=== PATIENT | female | born 1975 | race Caucasian/White ===

== ENCOUNTER 2019-12-31 12:08 | Inpatient (IN) | payer OTHER ==
[~2019-12-31] VITALS: Ht 144.8 cm; Wt 45.4 kg
--- NOTE | ~2019-12-31 | HC ---
[facility] [place] [address] CONSULTATION Name: FIONA GONZALES Room #: 456-P [facility] IN M.R.#: [id number] Admission: 12/31/19 Attend Phys: Mick Macdonald Discharge: 01/01/20 Date of : 71 Report #: [id number] THIS REPORT FOR: cc: CHULA - Samira family physician/PCP CHULA - Samira family physician/PCP Rafael Noriega MD ~ CC: CHULA physician/PCP Mick Macdonald DATE OF SERVICE: 01/01/2020 CHIEF COMPLAINT: Bilateral below-knee amputations. HISTORY OF PRESENT ILLNESS: This is a 44-year-old female patient who had a prolonged hospitalization at another facility. She presented originally with septic shock and polysubstance abuse and encephalopathy, developed multiorgan failure, lower extremity ischemia and ended up undergoing bilateral below-knee amputations. She left against medical advice and then presented here and has been readmitted for further evaluation and treatment. She is noted to have some ulceration and separation of the incision line on her right BKA and I am asked to see her with regard to wound care. PAST MEDICAL HISTORY: Once again is positive for previous cholecystectomy, tubal ligation, history of hepatitis C, previous partial hysterectomy, previous pneumonia. She has end-stage renal disease, requiring dialysis, bilateral below-knee amputations, multiorgan failure following severe sepsis. SOCIAL HISTORY: Negative for alcohol use. She currently smokes and is positive for recreational drug use per her history. MEDICATIONS: Include hydrocodone. ALLERGIES: No known drug allergies. FAMILY HISTORY: Noncontributory. REVIEW OF SYSTEMS: CONSTITUTIONAL: The patient denies fever, chills or weight loss. NEUROLOGICAL: The patient denies focal weakness. EYES: The patient denies any visual changes, redness, or drainage. ENT: The patient denies earache, nasal drainage or sore throat. CARDIOVASCULAR: The patient denies chest pain, palpitations or diaphoresis. PULMONARY: The patient denies cough or shortness of breath. GASTROINTESTINAL: The patient denies nausea, pain or abdominal pain. ORTHOPEDIC: The patient has bilateral below-knee amputations. Other systems in a 14-point review of systems are negative. [address] [address] CONSULTATION Name: FIONA GONZALES Room #: 456-P [facility] IN [facility].#: [id number] Admission: 12/31/19 Attend Phys: Mick Macdonald Discharge: 01/01/20 Date of : 71 Report #: [id number] PHYSICAL EXAMINATION: VITAL SIGNS: At this time include temperature 36.6, pulse 109, respiratory rate 18, blood pressure 152/97. GENERAL: This is a chronically ill-appearing female patient who appears to be in no distress. HEENT: Head normocephalic. Nose and throat clear NECK: Supple. LUNGS: Clear. ABDOMEN: Soft. Bowel sounds present. EXTREMITIES: Lower extremities demonstrate the incision line is intact bilaterally. There is ulceration, a little separation of the mid portion of the incision line, right below-knee amputation. It is not overtly infected. A little bit of crusting is noted. NEUROLOGIC: The patient is alert, does move all 4 extremities. LABORATORY STUDIES: Sodium 137, potassium 3.5, chloride 101, CO2 of 28, BUN 36, creatinine 3.8, glucose of 94, total bilirubin 0.8, alkaline phosphatase 503. Albumin 1.9. White blood cell count 8.9. CLINICAL IMPRESSION: 1. Surgical incisions, bilateral below-knee amputations. 2. Ulceration and small separation of the right below-knee amputation incision line. 3. End-stage renal disease, requiring dialysis. 4. Severe protein-calorie malnutrition. 5. History of polysubstance abuse and recent hospitalization with septic shock and multiorgan failure. 6. Type 2 diabetes mellitus. RECOMMENDATIONS: At this point in time, we will recommend Xeroform gauze to the incision lines and a small amount of gentamicin to the right incision separation area. We recommend continuation of the immobilizers, although she may do better with an AmpuShield bilaterally. She will need to go to rehab to build strength and mobility. Eventually, once the below-knee amputation sites are healed, she will need training for prostheses, continuation of current medications. She will need aggressive nutritional support to maximize her wound healing. I appreciate being asked to see her in consultation. By: [id number] Rafael Noriega MD /nt
--- NOTE | ~2019-12-31 | HC ---
[facility] [place] [address] CONSULTATION Name: FIONA GONZALES Room #: 456-P ADM IN M.R.#: [id number] Admission: 12/31/19 Attend Phys: Mick Macdonald Discharge: Date of : 71 Report #: [id number] THIS REPORT FOR: cc: FAM - No family physician/PCP CHULA - No family physician/PCP Demar Evans MD ~ CC: Larry GARRETT [facility] physician/PCP Mick Ferraro MD DATE OF SERVICE: 01/01/2020 REASON FOR CONSULTATION: Anemia. HISTORY OF PRESENT ILLNESS: The patient is a 44-year-old female who had recently been at [facility] for an extended time period with renal failure, sepsis, fungemia, who left against medical advice. Here, she was admitted for further evaluation. Her hemoglobin was 7 on admission. She has now been transfused up to 10. Her platelets are stable. Her white count is appropriate. At the other hospital, she had appropriate iron studies. She also was begun on erythropoietin by renal over there. At the other hospital, she had bilateral mkotq-qgo-jaou amputations due to ischemia and necrosis and dry gangrene. She also has septic shock and multiorgan dysfunction. She had aspiration pneumonia cavitary, MRSA positive, Legionella positive. Also, I believe there is candidemia and bacteremia, also protein-calorie malnutrition, also left AMA. Our group had signed off over there. At this time, the patient denies fevers, chills, nausea, vomiting, skin rash or bleeding. CURRENT MEDICATIONS: At this time in the hospital include calcium carbonate 1 gram daily, mirtazapine 7.5 at bedtime, gabapentin 400 at bedtime, famotidine 10 b.i.d., sliding scale insulin, hydrocodone p.r.n., Ambien p.r.n., MiraLax p.r.n., nitroglycerin p.r.n., Zofran p.r.n., micafungin 100 mg daily IV. PAST MEDICAL HISTORY: As above with the anemia, most likely of chronic kidney disease, resolving sepsis, but recent candidemia, antibiotics per others, also renal failure with dialysis, also history of hepatitis C. SOCIAL HISTORY: Not currently working. She had been working prior to this. FAMILY HISTORY: She says there is no one else in the family has significant blood or cancer difficulties. [address] [address] CONSULTATION Name: FIONA GONZALES Room #: 456-P [facility] IN [facility]#: [id number] Admission: 12/31/19 Attend Phys: Mick Macdonald Discharge: Date of : 71 Report #: [id number] PHYSICAL EXAMINATION: GENERAL: The patient appears her stated age. VITAL SIGNS: Height is 4 feet 9 inches, 144.8 cm, that is when standing when she had leg so to speak not to be clinically incorrect. Weight is 100 pounds or 45.36 kilograms. Blood pressure is 152/97, respirations 18, pulse 109, temperature 97.8. MOOD: The patient is alert and pleasant. LUNGS: Clear anteriorly. HEART: Regular rate. ABDOMEN: Without masses, no organomegaly. EXTREMITIES: Has vdtmu-qmm-bzqk amputations. ASSESSMENT AND PLAN: 1. Anemia, most likely related to resolving from sepsis, but also chronic kidney disease. Defer erythropoietin to her kidney doctors, will likely be considering dialysis, will be available if questions arise. 2. Chronic kidney disease/failure. Defer to others. 3. Fungemia history. Defer to Infectious Disease. 4. Hepatitis C. Defer management to others. 5. Bilateral nxlwx-ouc-skqz amputation, defer rehabilitation efforts to others. 6. History of polysubstance abuse, encourage avoidance of danger substances. By: [id number] Demar Evans MD /nt
[~2019-12-31 12:08] MED LIST: LORCET 5-325 M1 EACH PO; NOHOMEMEDICATIONS; NORCO 5-325 TA1 EACH PO
[2019-12-31 12:18] VITALS: BP 147/78
[2019-12-31 13:49] LABS: HEMATOCRIT 20.6 % (37.0-47.0); MCH 30.8 pg (26.0-34.0); MCHC 33.8 g/dL (28.0-37.0); MCV 91.3 fL (80.0-100.0); PLATELET COUNT 157 thou/uL (150-400); RBC 2.26 mil/uL (4.20-5.00); RDW 19.7 % (10.5-14.5); WBC 8.9 thou/uL (4.0-11.0)
[2019-12-31 14:03] LABS: CALCIUM 7.5 mg/dL (8.5-10.1); CREATININE 3.8 mg/dL (0.6-1.0); POTASSIUM 3.5 mmol/L (3.5-5.1)
[2019-12-31 14:10] LABS: ALBUMIN 1.9 g/dL (3.4-5.0); TOTAL BILIRUBIN 0.8 mg/dL (0.2-1.0); TOTAL PROTEIN 5.1 g/dL (6.4-8.2)
[2019-12-31 14:41] LABS: ABSOLUTE NEUTROPHILS 6.7 thou/uL (1.4-8.2); ANISOCYTOSIS 1+; NUCLEATED RBCS 1 /100WBC; POLYCHROMASIA SLIGHT
[2019-12-31 16:09] LABS: % SATURATION 38 % (20-39); IRON 35 ug/dL (50-170); TIBC 92 ug/dL (250-450)
[2019-12-31 16:55] VITALS: BP 156/67
--- NOTE | 2019-12-31 17:01 | NUR ---
VERBAL CONSENT FROM PT TO GIVE NIECE, AUTUMN, INFORMATION
[2019-12-31 20:30] VITALS: BP 178/93
--- NOTE | 2019-12-31 20:56 | NUR ---
PATIENT ADMITTED FROM ER, WITH ANEMIA, CHRONIC RENAL FAILURE REQUIRING DIALYSIS. PATIENT ALERT AND ORIENTED X 4 WITH SOME COGNITIVE DELAY. PATIENT DENIES PAIN DURING ADMISSION. PATIENT GIVEN FOOD AND WATER. RENAL DIET. PATIENT HAS RIGHT UPPER ARM IV AND LEFT CHEST DIALYSIS CATHETER IN PLACE. PATIENT HAS ORAL AMPUTATIONS, RIGHT SIDE 21 LING, WITH SWELLING AND REDNESS, AND LEFT SIDE HAS [address], REWAPPED BOTH LEGS. DR GARRETT CAME TO SEE THE PATIENT, PICTURES TAKEN. ADMISSION DONE WILL REPORT TO EILEEN/RN.
[2020-01-01 00:39] VITALS: BP 152/90; BP 157/83; BP 157/87; BP 158/91; BP 159/84
[2020-01-01 05:30] VITALS: BP 159/84
--- NOTE | 2020-01-01 06:45 | NUR ---
Assumed pt care at 1900. A/OX4, VSS. C/o pain to BKA, medicated per EMAR with relief reported. VSS. 1 Unit of PRBC administered w/o problems. Dialysis cath in place on LIJ with fresh drainage on dsg. Changed w/o problems. Dsgs to Left knee replaced,wyatt intact. Fall precauitions in place.
[2020-01-01 07:16] VITALS: BP 152/97
--- NOTE | 2020-01-01 07:32 | EKG ---
[facility] [place] [address] ELECTROCARDIOGRAM REPORT Name: FIONA GONZALES Room #: 456-P ADM IN M.R.#: [id number] Admission: 12/31/19 Attend Phys: Mick Macdonald Discharge: Date of : 71 Report #: [id number] THIS REPORT FOR: cc: CHULA - No family physician/PCP CHULA - No family physician/PCP Jad Smith MD [facility] THIS REPORT FOR: //name// [facility] ED Test Date: 2019-12-31 Test Time: 14:25:43 Pat Name: FIONA GONZALES Department: Room: 456 Gender: F General Expeditor: tasha : 1975 Requested By: Monet Guzman Order Number: [id number] MD: Jad Smith Measurements Intervals Grant Rate: 75 P: 57 [place]: 139 QRS: 7 QRSD: 80 T: 57 QT: 387 QTc: 433 Interpretive Statements Sinus rhythm Normal tracing No previous ECG available for comparison Electronically Signed On 01-01-2020 7:32:18 CDT by Jad Smith [email or web address] <ELECTRONICALLY SIGNED> By: Jad Smith MD, FAC 01/01/20 0732 [id number] 142 Jad Smith MD, [facility] /EPI
[2020-01-01 08:08] LABS: HEMATOCRIT 30.6 % (37.0-47.0)
[2020-01-01 08:17] LABS: HEMOGLOBIN 10.2 gm/dL (12.0-15.0)
--- NOTE | 2020-01-01 11:52 | NUR ---
PT ADMITTED RELATED TO ESRD ON HD; ANEMIA; ORAL BKA 11/2019. CM REVIEWED CHART AND SPOKE WITH CARE TEAM. CM CALLED AND SPOKE WITH PT THIS MORNING. SHE INDICATED SHE HAD BEEN AT [facility] [employer] WHERE SHE HAD A BL BKA. CHART INDICATES PT LEFT AMA 12/30/19 THAT HER SISTER PICKED HER UP AND THEN BROGUGHT HER HERE SHE NEEDED DIALYSIS. PT DIDN'T CONFIRM OR DENY THIS. SHE INDICATED THAT PRIOR TO ADMISSION TO [facility] SHE HAD BEEN LIVING IN A HOUSE ALONE WITH A COUPLE STEPS TO ENTER AND NONE SHE NEEDS TO USE INSIDE. PT INDICATED NO DME, HH HX, OR DME [employer]. PT INDICATED SHE WOULD NEED A WC UPON DC. PT INDICATED SHE IS INTERESTED IN POST ACUTE CARE STAY. PT AND OT ORDERED. [facility] TO ASSESS. CM TO FOLLOW INDICATED WITH DC PLANNING.
[2020-01-01 15:16] VITALS: BP 175/90
--- NOTE | 2020-01-01 16:26 | NUR ---
[facility] ASSESSED PT THIS DAY AND DETERMINED THAT THEY ARE ABLE TO ACCEPT PT FOR ACUTE REAHB SERVICES. MEDICAID AUTH WAS OBTAINED. THEY ARE ABLE TO BRING PT UP TO [facility] THIS EVENING AFTER 1900. PT IS AWARE AND AGREEABLE. REPORT TO BE CALLED TO . NO OTHER CM INTERVENTION INDICATED. CASE CLOSED.
--- NOTE | 2020-01-01 19:26 | NUR ---
Assumed pt care at 7am.Pt in bed resting. Assessment completed.vss.Pt was tearful and emotionally labile.She reported to this rn that her legs were amputated at [facility] without her consent and that she woke up noted that her legs were gone and that [facility]'s [facility].Emotional support given.Dr Macdonald and Nephrology here.order noted.Pt will be transfer to rehab at shift change today.Fall bundle in place.Report off to noc rn.
[2020-01-01] MEDS ORDERED: TOPROL XL25 MG PO (23:06)
[2020-01-01] MEDS ORDERED: ELIQUIS5 MG PO (23:07)
[2020-01-01] MEDS ORDERED: AMITIZA 24 MCG24 MC1 PO (23:09)
[2020-01-01] MEDS ORDERED: LIDODERM1 EACH (23:11)
[2020-01-01] MEDS ORDERED: FLEXERIL PO (23:12)
[2020-01-01] MEDS ORDERED: PROTONIX40 M2 PO (23:14)
[2020-01-01] MEDS ORDERED: COLACE100 MG PO (23:16)
== END 2020-01-01 19:30 | DRG 682 ==
LOC: ER 12:08 → EROBS 15:59 → 4W 18:32
PROVIDERS: Nurse Practitioner Family; Physician Assistant; ADMIT Hospitalist; ATTEND Hospitalist
PROC: 30233N1 Transfusion of Nonautologous Red Blood Cells into Peripheral Vein, Percutaneous Approach (ICD-10-PCS; principal; 2020-01-01)
DX: N17.9 Acute kidney failure, unspecified (principal); E43 Unspecified severe protein-calorie malnutrition; G93.41 Metabolic encephalopathy; B37.41 Candidal cystitis and urethritis; I96 Gangrene, not elsewhere classified; E11.52 Type 2 diabetes mellitus with diabetic peripheral angiopathy with gangrene; N18.6 End stage renal disease; D64.9 Anemia, unspecified; F17.210 Nicotine dependence, cigarettes, uncomplicated; E11.22 Type 2 diabetes mellitus with diabetic chronic kidney disease; B19.20 Unspecified viral hepatitis C without hepatic coma; Z90.49 Acquired absence of other specified parts of digestive tract; Z90.711 Acquired absence of uterus with remaining cervical stump; Z89.512 Acquired absence of left leg below knee; Z89.511 Acquired absence of right leg below knee; Z91.19 Patient's noncompliance with other medical treatment and regimen; Z59.0 Homelessness
CPT/HCPCS: 10040

== ENCOUNTER 2020-01-01 16:50 | Inpatient (IN) | payer OTHER ==
[~2020-01-01] VITALS: Ht 121.9 cm; Wt 39.0 kg
--- NOTE | 2020-01-01 20:00 | NUR ---
Pt. arrived to the unit from . She is alert and oriented and offers no complaints.
[2020-01-01] MEDS ORDERED: TOPROL XL25 MG PO (23:06)
[2020-01-01] MEDS ORDERED: ELIQUIS5 MG PO (23:07)
[2020-01-01] MEDS ORDERED: AMITIZA 24 MCG24 MC1 PO (23:09)
[2020-01-01] MEDS ORDERED: LIDODERM1 EACH (23:11)
[2020-01-01] MEDS ORDERED: FLEXERIL PO (23:12)
[2020-01-01] MEDS ORDERED: PROTONIX40 M2 PO (23:14)
[2020-01-01] MEDS ORDERED: COLACE100 MG PO (23:16)
[2020-01-02 01:09] VITALS: BP 143/95
[2020-01-02 05:27] LABS: HEMATOCRIT 30.6 % (37.0-47.0); HEMOGLOBIN 10.1 gm/dL (12.0-15.0); MCV 90.9 fL (80.0-100.0); RBC 3.36 mil/uL (4.20-5.00); RDW 18.5 % (10.5-14.5); WBC 9.5 thou/uL (4.0-11.0)
[2020-01-02 05:36] LABS: CALCIUM 7.9 mg/dL (8.5-10.1)
[2020-01-02 06:26] LABS: CREATININE 4.8 mg/dL (0.6-1.0)
--- NOTE | 2020-01-02 07:51 | NUR ---
Pt. rested quietly at intervals during the night when checked on during frequent rounds. She did c/o some lower leg phantom pain and Annabella LOCKETT called and new orders for po pain pill (see cpoe). Pain pill given (see emar) with some relief noted. Bed alarm is on.
[2020-01-02 08:00] VITALS: BP 154/97
--- NOTE | 2020-01-02 09:50 | NUR ---
chart review. cm up on unite with own face mask and face shield, pt call light on, cm answer it and request to get off the drop arm bsc. offered to come back later and pt was ok with visiting now. pt able to make her needs know, preferrs going by lyn. cm intro to dcp, weekly meeting and transition of care. " prior to [facility], independent, live alone in house. few step to enter and no stair inside. cooking. drive vehicle. manage own medication. no medical equip. might have broken wheel chair. no dialysis before now. no primary dr. might stay with my sister or my son is support too. my sister might stay at my place. we are still working on option. sister does work and son as well. gun stocker came to assist, pt sister dayana ferrer at bedside. pt reported she already cleaned up and just needing back into bed. pt did not want to use transfer board, lyn slid and hoped onto the bed, hitting the transfer board on to end of bed, pt sister said lyn hit back of head on transfer board. cm looked at head and pt verbal denied hitting head or any discomfort. cm passed on to bedside nurse.
[2020-01-02 11:45] LABS: FOLIC ACID 16.7 ng/mL (8.6-58.9)
--- NOTE | 2020-01-02 13:10 | NUR ---
Nutrition: pt admitted to rehab unit unit S/P bilateral BKA 2 weeks ago due to bilateral foot ischemia and necrosis leading to dry gangrene. Saw due to dx. PMH includes DM, ESRD on hemodialysis. Noted hx noncompliance. Pt had been at [facility]. Has had good appetite, eating 100% of meals and likes nepro. Will re-order once daily as was getting previously. Nutrient needs reviewed. Pt denies further education. Current weight 100# down ~20# from prior BKA weights. Estimated loss due to BKAs. Use 100# as new baseline weight. BG controlled. No need for carb controlled diet at present. Followup weekly with interventions in place.
--- NOTE | 2020-01-02 20:57 | NUR ---
ASSUMED CARE OF PT AT 0700. PT IS A&OX3, VITAL SIGNS ARE STABLE. PT IS IMPULSIVE AT TIMES AND HAS POOR INSIGHT. PT REMOVED WRAPS FROM BILATERAL BKA SITES THIS MORNING, REPLACED THIS EVENING. PT MAKING FREQUENT ATTEMPTS TO SELF TRANSFER. ACCU CHECKS ACHS. PT REPORTS SOME PAIN TO BILATERAL BKA SITES, MANAGED WTIH PO MEDICAITONS, PT PARTICIPATED IN SCHEDULED THERAPIES. IV TO RIGHT UPPER ARM INFILTRATED THIS AM AND WAS REMOVED AND NEW IV STARTED TO RIGHT AC. FALL PRECAUTIONS IN PLACE AND NURSING WILL CONTINUE TO MONITOR.
[2020-01-02 21:59] VITALS: BP 154/113
--- NOTE | 2020-01-03 02:54 | NUR ---
Assumed care on 01/02/20 @ 19:15, in bed A&Ox3. Poor insight into medical needs and reason for hospitalization. Pleasant affect noted. Reports phantom pain and requested [place] 5/325 for 6/10 pain. Provided @ 21:34 and follow up assessment noted to be sleeping in bed with eyes closed, respirations even and unlabored. Cooperated with assessment, HRRR, Lungs moving air with fine rattles noted on expiration. Acucheck noted at 112, with no S/S coverage required at that level. Will continue to monitor as protocol for patient safety and comfort.
[2020-01-03 07:08] LABS: GLYCOHEMOGLOBIN (HGB A1C) 5.2 % (4.8-5.6)
[2020-01-03 07:43] VITALS: BP 171/92
--- NOTE | 2020-01-03 12:45 | NUR ---
ASSUMED CARE AROUND 0830. PT IS ALERT AND ORIENTED. FORGETFUL, WITH SLIGHT COGNITIVE DELAYS. C/O PAIN IN HER LEGS. DESSINGS C/D/I. HANGAR TO FIT AMPUSHIELDS TODAY. PT USING SLIDE BOARD FOR TRANSFER, DOES WELL. TOLERATING PO. GI/ WNL. NEED TO GET 24 HR URINE. PIV IN RFA INFILTRATED. IV TEAM REPLACED. PT COULD BENEFIT FROM A TICC (PER IV TEAM) WILL MENTION TO DR. BERMUDEZ CATH NOTED TO LEFT NECK. WILL REDRESS WOUNDS LATER. PRN PAIN MEDS GIVEN ORDERED. FALL PRECAUTIONS IN PLACE. EDUCATED PT TO CALL IF NEEDS ARISE. CALL LIGHT IN REACH. WILL CONTINUE TO MONITOR
[2020-01-03 19:28] VITALS: BP 149/99
--- NOTE | 2020-01-04 04:15 | NUR ---
ASSUMED CARE FROMDAY SHIFT AWAKE ALERT AND ORIENTED TO TIME PLACE AND SITUATION, NO CONCERNS VOICED APPEARS CHEERFUL. PT EATING FOOD THAT WAS BROUGHT INFROM HOME. PO MEDICATION , PT ASISSTED TO BSC VOIDED, NEXT URINE WILL START 24 HOUR URINE COLLECTION. PT RESTED WELL THROUHGOUT HOURLY ROUNDS. WILL CONINTUE WITH CURRENT PLAN OF CARE.
[2020-01-04 10:05] VITALS: BP 149/101
--- NOTE | 2020-01-04 16:30 | NUR ---
PATIENT ALERT AND ORIENTED X 4 - SUFFERS FROM PHANTOM PAIN AND ADMITS TO IT. GIVEN NORCO TO AID WITH DISCOMFORT. HAS ANTIBIOTIC RUNNING AND IV INFILTRATED. IN RIGHT FOREARM. CALLED IV TEAM AND NEW IV PLACED IN LEFT FOREARM. PATIENT STATES STILL HURTS. PATIENT ABLE TO TRANSFER INDEPENDENTLY WITH BOARD. NEED MONITORING WHEN MANUVERING. LIKES TO HANDLE OWN ADL'S. SUGGESTED TICK LINE PLACEMENT IF CONTINUED ANTIBIOTIC IV REGIME. PATIENT HAD 200 CC OUTPUT SO FAR TODAY. FIRST SPECIMEN CONTAMINATED WITH FECES THIS MORNING. 24 HOUR CREATINE LAB FOLLOWUP NEEDED.
[2020-01-04 21:31] VITALS: BP 164/98
[2020-01-04 21:46] VITALS: BP 168/114
[2020-01-05] VITALS: BP 164/88
--- NOTE | 2020-01-05 03:50 | NUR ---
PT ASSESSMENT COMPLETED. FALL PRECAUTIONS IN PLACE. ORAL LOWER EXT DRESSINGS DRY AND INTACT. PRN PAIN MEDICATION HELPFUL. DIALYSIS ACCESS AND DRESSING INTACT AND WNL. ASST WITH REPOSITION. RESTARTED 24 HOUR URINE. PT HAS NOT VOIDED SO FAR DURING SHIFT. ASST WITH FREQUENT REPOSITION. WILL CONTINUE TO MONITOR FREQUENTLY.
[2020-01-05 06:24] LABS: CREATININE 3.5 mg/dL (0.6-1.0); PHOSPHORUS 3.2 mg/dL (2.5-4.9); POTASSIUM 3.9 mmol/L (3.5-5.1)
[2020-01-05 13:32] VITALS: BP 157/92
--- NOTE | 2020-01-05 19:47 | NUR ---
ASSUMED CARE OF PT AT 0715. PT IS A&OX3. IS ON ROOM AIR. IS STABLE. REPORTS PAIN IN BILAT BKAS THAT IS BEING MANAGED WITH PAIN MEDS & OTHER THERAPUETIC TECHNIQUES. DRSG CHANGED ORDERED. LABS & VITALS REVIEWED. PT TRANSFERS WITH ASSIST X1, GB, & SLIDE BOARD. FALL PRECAUTIONS & HOURLY ROUNDING CONTINUED THIS SHIFT. PT TO HAVE TIC PLACED BY IV TEAM. NOC NURSE AWARE. LABS & VITALS REVIEWED. PT IS CURRENTLY IN ROOM, IN BED, RESTING COMFORTABLY. CALL LIGHT WITHIN REACH. WILL CONTINUE TO MONITOR.
[2020-01-05 20:05] VITALS: BP 147/100
[2020-01-05 23:30] VITALS: BP 145/92
--- NOTE | 2020-01-06 02:21 | NUR ---
PT ASSESSMENT COMPLETED AND VSS. MEDS GIVEN ORDERED AND WELL TOLERATED. FALL PRECAUTIONS IN PLACE. UP TO THE BSC USING SLIDE BOARD AND GB/ASST. 24 HOUR URINE COMPLETED AND SENT TO THE LAB ON ICE - PENDING. PRN PAIN MEDICATION WORKING WELL. BG WNL. SLEEPING WELL AT THIS TIME. WILL CONTINUE TO MONITOR FREQUENTLY. DIALYSIS ACCESS WNL.
[2020-01-06 06:00] LABS: ALBUMIN 2.1 g/dL (3.4-5.0); CALCIUM 8.4 mg/dL (8.5-10.1); CREATININE 3.9 mg/dL (0.6-1.0); PHOSPHORUS 4.4 mg/dL (2.5-4.9); POTASSIUM 4.2 mmol/L (3.5-5.1)
[2020-01-06 10:58] LABS: PROTIME 10.2 Seconds (9.3-11.4)
[2020-01-06 11:49] VITALS: BP 155/80
--- NOTE | 2020-01-06 12:41 | NUR ---
team meeting, recommendation; dc , will need to set up new dialysis. hh nurse only. will need wheel chair, transfer board. she non-compliant with thicken liquids.
[2020-01-06 17:44] LABS: HEMATOCRIT 31.2 % (37.0-47.0); HEMOGLOBIN 9.9 gm/dL (12.0-15.0)
--- NOTE | 2020-01-06 21:20 | NUR ---
THIS DIALYSIS PATIENT ATTEMPTED TO ACCESS HEMODIALYSIS CATH AT 1830. AT THIS TIME CATH WOULD NOT ASPIRATE FROM EITHER LUMEN BUT DID ALLOW FLUSHING IN BOTH ARTERIAL AND VENOUS LUMENT. DR. WALDROP ORDERED CATHFLO/ACTIVASE INSTILL INTO BOTH LUMENS TO DWELL FOR 30MIN AND ATTEMPT ACCESS AGAIN. CATHFLO INSTILLED AT 1915 WITH ATTEMPTED ASPIRATION OF CATHFLO AT 1945. VENOUS LUMEN ASPIRATED VERY SLOW RATE AND REQUIRED GREAT AMOUNT OF PRULL OF PLUNGER TO ASPIRATE WHAT LITTLE POSSIBLE. ARTERIAL LUMEN WOULD NOT ASPIRATE AT ALL. IT WAS DECIDED BY DR. WALDROP TO INSTILL MORE CATHFLO INTO ACCESS TO DWELL OVERNIGHT AND A DATA RECOVERY PLANNER WILL ATTEMP THE ACCESS AGAIN FIRST THING IN THE AM. VERY IMPORTANT TO NOTE: WHEN THIS DATA RECOVERY PLANNER ACCESSED THE CATH THERE WERE TWO DIFFERENT CAPS ON THE ACCESS. THE ARTERIAL LUMEN HAD THE Q-CAPS SUPPLIED BY DIALYSIS AND THE VENOUS LUMEN HAD A VERY DIFFERENT CAP ON THE END. THE PATIENT STATED THE FLOLLWING AFTER THE 2ND ATTEMPT/POST MEDICATION TO ACCESS THE CATH: " THE KNEW IT WAS NOT WORKING". THIS DATA RECOVERY PLANNER ASKED THE PATIENT WHO KNEW AND SHE SAID "THE MAN WHO TRIED TO GET TO BLOOD TUBES FILLED FROM IT. HE KNEW IT WAS NOT WORKING." QUESTION - IS SOMEONE ACCESSING THIS HEMODIALYSIS CATHETER AND CAUSING ITS FAILURE?
--- NOTE | 2020-01-06 23:56 | NUR ---
PT ASSESSMENT COMPLETED AND VSS. MEDS GIVEN ORDERED AND WELL TOLERATED. FALL PRECAUTIONS IN PLACE. UP TO THE BSC USING SLIDE BOARD WITH ONE ASST/GAIT. PT DID VERY WELL WITH ASSISTANCE. EMERGENCY PLANNING AND RESPONSE MANAGER UNABLE TO DO DIALYSIS THIS EVENING BECAUSE ACCESS IS CLOTTED. EMERGENCY PLANNING AND RESPONSE MANAGER WILL CHECK LINE AGAIN IN THE AM. DR DANIELS. INFORMED ONCMANDIE PETEROSN TO KEEP PT NPO DURING THE NIGHT IN CASE SHE NEEDS TO GO TO THE OR FOR ACCESS. PT CRYING OUT IN PAIN THIS EVENING. PRN PAIN MEDICATION HELPFUL. PT SLEEPING AT THIS TIME. GAVE REPORT TO ONCMANDIE PETERSON.
--- NOTE | 2020-01-07 01:03 | NUR ---
ASSUMED CARE AT 2300. DURING REPORT, PT BEGAN SCREAMING AND THRASHING IN BED. SHE WAS EASILY CALMED, AND APPEARED TO HAVE AWAKEN FROM A BAD DREAM, BUT LATER BEGAN SCREAMING IN PAIN, SAYING, "MAKE IT STOP" AND MOVING LEGS UP AND DOWN IN THE BED. SHE WAS MEDICATED WITH HYDROCODONE AND IMMEDIATELY CALMED. IV MICAFUNGIN STARTED, IT WAS NOTED THAT THE IV ACCESS WAS IMAGED DURING PLACEMENT AND PROPER POSITION WAS VERIFIED BY XRAY AND FLURO/US. PHARMACY ADJUSTED THE DOSAGE TO EVENING INSTEAD OF AM, AND THIS DOSE IS INFUSING WELL. ASSISTED PT UP TO THE BSC AND NOTED IMPULSIVITY. ORAL FLUIDS GIVEN. PT ASLEEP IN BED NOW AND HAD STATED THAT THE PAIN MEDS HELPED EASE THE PAIN SOME.
[2020-01-07 06:36] LABS: ALBUMIN 2.2 g/dL (3.4-5.0); CALCIUM 8.4 mg/dL (8.5-10.1); CREATININE 4.4 mg/dL (0.6-1.0); PHOSPHORUS 4.6 mg/dL (2.5-4.9); POTASSIUM 4.3 mmol/L (3.5-5.1)
--- NOTE | 2020-01-07 07:25 | NUR ---
LATE ENTRY FOR 01/06/20. PT IS A&OX4 AND VITAL SIGNS ARE STABLE. NO IV ACCESS AVAILABLE AND IV TEAM ASKED TO HAVE TICC LINE INSERTED. HEPARIN IN AM HELD IN AM FOR PROCEDURE. TICC LINE TO RIGHT SUBCLAVICULAR AREA WITH DRESSING IN PLACE. PT REPORTS PAIN TO BILATERAL STUMPS, PO MEDICATIONS ADMINISTERED. DIALYSIS ORDERED BUT NURSE UNABLE TO ACCESS AND PT NPO FOR POSSIBLE PROCEDURE TO REACCESS LINE. FALL PRECAUTIONS IN PLACE AND NURSING WILL CONTINUE TO MONITOR.
--- NOTE | 2020-01-07 07:29 | NUR ---
ASSUMED CARE OF PT AT 0300. PT IS IN BED, FREQUENTLY CALLING OUT AND TALKING IN SLEEP. PT WILL OPEN EYES WHEN STAFF IN ROOM, BUT DOES NOT RESPOND APPROPRIATELY TO STAFF. STAFF ENDURED PT SAFETLY AND ALLOWED PT TO SLEEP. FALL PRECAUTIONS IN PLACE AND NURSING WILL CONTINUE TO MONITOR.
[2020-01-07 08:00] VITALS: BP 156/102
--- NOTE | 2020-01-07 14:17 | NUR ---
cm called sister dayana, left message requested call back. will cont following as needed for dc needs.
--- NOTE | 2020-01-07 16:40 | NUR ---
ASSUMED CARES AT 0700. PT AWAKE, ALERT AND ORIENTED*4. WHILE SLEEPING THIS AM PT STARTED YELLING AND STATED THAT SHE HAD HAD A NIGHTMARE. C/O PHANTOM PAIN IN BLE, PAIN MEDICATION ADMINISTERED NEEDED. VITALS REMAIN STABLE. TICC LINE ON CHEST RIGHT REMAINS DRY AND INTACT, DRESSING CHANGED TODAY BY IV TEAM. TESIO ON CHEST LEFT REMAINS DRY AND INTACT PT TO HAVE DIALYSIS THIS EVENING. INCISIONS ON BLE (BKA) CLEANED AND DRESSING CHANGED, PHOTOGRAPH TAKEN OF WOUND ON RIGHT BKA. LING REMAIN INTACT. ASPIRATION PRECAUTIONS MAINTAINED. PT REMAINS ON NECTAR THICK FLUIDS AND TOLERATES WELL. PT UP WITH 1 AND SLIDEBOARD AND TOLERATES WELL. Q1H VISUAL CHECKS. CALL LIGHT WITHIN REACH. FALL PRECAUTIONS IN PLACE
--- NOTE | 2020-01-08 02:54 | NUR ---
ASSUMED CARE OF PT AT 1915 ON 01/07/20. PT IS A&OX3. IS FORGETFUL, CONFUSED & ANXIOUS AT TIMES. REPORTS PHANTOM PAIN IN BILAT LE BKAS THAT IS BEING MANAGED WITH ORAL PAIN MEDS & OTHER THERAPUETIC TECHNIQUES. PT DRSGS & ACEWRAPS C/D/I. CHANGED BY DAY SHIFT NURSE. PT HAS BEEN CRYING OUT THROUGHOUT THE NIGHT. TRANSFERS FROM BED TO W/C & TOILET VIA GAIT BELT & SLIDE BOARD. FALL PRECAUTIONS & HOURLY ROUNDING CONTINUED THIS SHIFT. LABS & VITALS REVIEWED. PT IS CURRENTLY IN BED SLEEPING. CALL LIGHT WITHIN REACH. PT HAS LEFT CHEST TESIO & RIGHT CHEST TICC. HAD DIALYSIS LAST EVENING WITH 800 ML OFF. WILL CONTINUE TO MONITOR.
[2020-01-08 08:17] VITALS: BP 157/95
--- NOTE | 2020-01-08 12:39 | NUR ---
Nutrition followup: Pt continues to eat very well, 75-100% of meals. ST now following for dysphagia and requires mechanically altered chopped, nectar thick liquids and unable to provide nepro supplements. Discussed with ST. Pt requires 100% supervision and needs to take liquids by spoon. Provided nepro to ST so she can trial. Otherwise, will trial magic cup daily with pt and follow labs. Currently K+/phos WNL. BG controlled. BM 01/07. Weight discrepancies, only bedscale weights can be obtained with bilateral BKAs. 01/03 weight-93#, 01/06 weight-82#. Suspect error. On phos binder/mirtazapine. Allowing pt to have mashed potatoes tonight per her request. Followup weekly.
--- NOTE | 2020-01-08 16:58 | NUR ---
ASSUMED CARE OF PT AT 0700. PT IS ALERT AND ORIENTED TO PERSON, PLACE AND TIME. TACHYCARDIA NOTED ON AM VITAL SIGN CHECK, MEDICATIONS ADJUSTED BY PROVIDER. BLE DRESSING CHANGES COMPLETED PER ORDERS. SKIN TEAR TO LEFT WRIST THIS SHIFT DURING THERAPY TRANSFER, CLEANED AREA AND FOAM DRESSING APPLIED. LEFT TESIO LINE WITH DRESSING INTACT AND RIGHT TICC LINE WITH DRESSING IN PLACE. PT DENIES PAIN, PARTICIPATED IN SCHEDULED THERAPIES. FALL PRECAUTIONS IN PLACE AND NURSING WILL CONTINUE TO MONITOR.
[2020-01-08 19:43] LABS: HEPATITIS B SURFACE AG Negative
[2020-01-08 19:44] LABS: HEP B SURFACE Ab(ANTI-HBS Non-reactive
[2020-01-08 19:47] VITALS: BP 148/96
[2020-01-08 22:16] VITALS: BP 148/96
--- NOTE | 2020-01-09 00:22 | NUR ---
ASSESSMENT COMPLETED. PT IS ALERT AND ORIENTED X3. C/O PHANTOM PAIN GIVEN PRN NORCO. PT ALSO HAD A FEVER OF 100.2 AT HS. RECHECK AT ABOUT 2300 HRS SHOWED RESOLVE OF THE TEMP. PT UP TO BSC USING SLIDE BAR. HS MEDS CRUSHED IN PUDDING. PT CONTIUES TO BE SLIGHTLY RAPID. DENIES COUGH OR SOA. FALL PREC IN PLACE.CALL LIGHT WITHIN REACH.
[2020-01-09 05:34] LABS: ABSOLUTE NEUTROPHILS 3.9 thou/uL (1.4-8.2); BASOPHILS 1.7 % (0.0-2.0); EOSINOPHILS 2.1 % (0.0-3.0); HEMATOCRIT 27.3 % (37.0-47.0); LYMPHOCYTES 38.4 % (24.0-44.0); MCH 30.1 pg (26.0-34.0); MCV 91.1 fL (80.0-100.0); MONOCYTES 9.5 % (1.0-8.0); PLATELET COUNT 254 thou/uL (150-400); POLYS 48.3 % (36.0-66.0); RDW 19.3 % (10.5-14.5); WBC 8.1 thou/uL (4.0-11.0)
[2020-01-09 05:36] LABS: ALBUMIN 2.2 g/dL (3.4-5.0); CALCIUM 8.5 mg/dL (8.5-10.1); MAGNESIUM 1.6 mg/dL (1.8-2.4); PHOSPHORUS 2.7 mg/dL (2.5-4.9); POTASSIUM 4.1 mmol/L (3.5-5.1)
[2020-01-09 06:01] LABS: CREATININE 3.3 mg/dL (0.6-1.0)
[2020-01-09 09:00] VITALS: BP 153/99
--- NOTE | 2020-01-09 10:43 | NUR ---
cm just received phone call from [facility] say per dr stallings saying can not accept her for dialysis. cm asked md to reach out to dr stallings. 2 days in a row [facility] called and said they could accept and now we are being told other ruiz. will cont following as needed for dc needs. will send out referral to other dialysis clinic.
--- NOTE | 2020-01-09 17:54 | NUR ---
ASSUMED CARE OF PT AT 0700. PT IS A&OX3 AND VITAL SIGNS ARE STABLE. PT REPORTED PAIN TO BILATERAL LOWER EXTREMITIES, PO MEDICATIONS ADMINISTERED. NO ELEVATED TEMP NOTED THIS SHIFT. DIALYSIS THIS AFTERNOON, PER DIALYSIS NURSE 1L REMOVED. PT IMPULSIVE ATTEMPTS TO TRANSFER AND DO ACTIVITIES WITHOUT SAFETLY PRECAUTIONS IN PLACE. PT FAILS TO CALL FOR NEEDS FREQUENLY. FALL PRECAUTIONS IN PLACE AND NURSING WILL CONTINUE TO MONITOR.
--- NOTE | 2020-01-10 02:49 | NUR ---
assumed care at approx 1900 evening 01/08. pt lying in bed with head of bed elevated at change of shift. pt restless and irritable at hs. pt given hs meds and pain med and settled down. pt had bm tonight. pt appears to be sleeping at present. bed alarm on and call light in reach. will continue with hourly rounding and monitoring.
[2020-01-10 07:40] VITALS: BP 138/81
--- NOTE | 2020-01-10 18:36 | NUR ---
PARTICIPATED WITH THERAPY. USES SLIDING BOARD FOR TRANSFERS. VOIDS PER URINAL. GOOD APPETITE FOR MEALS. ATE IN DINNING ROOM. STUMP DRESSINGS CHANGED PER DR. MOY. NO C/O PAIN.
[2020-01-10 19:30] VITALS: BP 141/99
--- NOTE | 2020-01-11 02:42 | NUR ---
assumed care at approx 1900 evening 01/09. pt awake and alert at change of shift. pt dozing off and on before hs. pt took meds crushed with applesauce without difficulty. pt assisted to bsc with slideboard to have bm tonight. pts dressing to left stump came loose and changed and reinforced. pt appears to be sleeping soundly with hourly rounding checks. bed alarm on and call light in reach. will continue to monitor.
[2020-01-11 07:40] VITALS: BP 148/90
--- NOTE | 2020-01-11 10:21 | NUR ---
ASSUMED CARE AT 0700. PATIENT IS ALERT AND ORIENTED X4. PATIENT IS BILATERAL L.E. AMPUTEE. ALEXANDER WRAPS ON. PATIENT USES SLIDE BOARD TO TRANSFER FROM THE BED TO THE W/C. PATIENT IS DIALYSIS PATIENT AND HAS DIALYSIS ON /./SAT. PATIENT HAS LEFT CHEST TESSIO FOR DIALYSIS. PT HAS TIC LINE/DUEL LUMIN FOR ABT'S. IV SITE WITHOUT REDNESS OR SWELLING. FALL AND SAFETY PROTOCOLS IN PLACE. DENIES PAIN AT THIS TIME. WILL CONTNUE TO MONITER.
--- NOTE | 2020-01-11 16:11 | HC ---
[facility] [place] [address] CONSULTATION Name: FIONA GONZALES Room #: 505-P ADM IN M.R.#: [id number] Admission: 01/01/20 Attend Phys: Shawn Francisco MD Discharge: Date of : 71 Report #: [id number] THIS REPORT FOR: cc: CHULA Hogan family physician/PCP CHULA Hogan family physician/PCP Austin Cole PhD ~ CC: Shawn QUIROS physician/PCP DATE OF SERVICE: 01/04/2020 BEHAVIORAL STATUS EXAMINATION ATTENDING PHYSICIAN: Shawn Francisco MD OPERATIONS AND INTELLIGENCE ASSISTANT: Austin Cole, PhD CLINICAL PRESENTATION: The patient is a 44-year-old white female, initially admitted to the [facility] on 11/20/2019 with sepsis, pneumonia, multiorgan failure and necrosis with gangrene, bilateral lower extremities requiring a bilateral yfzxn-tqi-sjty amputation. The patient was started on hemodialysis for renal failure and given antibiotics. The patient was reported to have left her acute hospitalization AMA because of the gxbnb-daf-wlfz amputation. Her sister came to pick her up from the hospital and she was not utilizing a wheelchair or therapies. Apparently, her brother was carrying her. Her diagnostic assessment on admission to the rehabilitation unit included a nonischemic with necrosis and gangrene, status post bilateral qhhyt-rzb-qavo amputation approximately 2 weeks ago, metabolic encephalopathy, acute renal insufficiency superimposed on chronic kidney disease on hemodialysis, anemia, hepatitis C noted to be active, candidemia, recent sepsis with multiorgan dysfunction, severe protein-calorie malnutrition, diabetes mellitus type 2, and polysubstance abuse utilizing IV drugs and tobacco. A complete description of her medical condition and history can be found in her medical record. Neuropsychological consultation was requested to provide assistance in the assessment of cognitive and emotional status and to provide recommendations and services. Prior to this admission, she reports having been living in a hotel. She remembers falling in the shower and hitting her head and then being amnestic until awakening in the hospital. The patient carries a diagnosis of bipolar disorder for about 7 years ago. She reports abusing methamphetamine and marijuana on a daily basis prior to her hospitalization. She has 3 adult children. The patient has an 11th grade education. 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 She has 1 brother and [address] [address] CONSULTATION Name: FIONA GONZALES Room #: 505-P [facility] IN M.R.#: [id number] Admission: 01/01/20 Attend Phys: Shawn Francisco MD Discharge: Date of : 71 Report #: [id number] TECHNIQUES UTILIZED: Clinical interview, review of medical records, staff consultation and behavioral observation, mini mental status exam 2 standard version, clock drawing, and brief letter and category fluency assessment. EXAMINATION FINDINGS: The patient was alert and cooperative with the assessment. She accurately described events surrounding her admission. There is no evidence of aphasia. Her thoughts are logical and goal oriented. There is no report of auditory or visual hallucinations. She does not report suicidal ideation. She describes difficulty with sleep and anxiety. Difficulty with verbal expression and speech is reported. Her performance on the MMSE 2 brief version is within normal limits with a raw score of 14 of 16 and a T score of 43. She was 3/3 for initial registration, 5/5 for orientation to time and place. She was 1/3 for immediate recall of 3 items after a brief time delay and distraction. Performance on the MMSE 2 standard version was 23 of 30, which is a T score 36 and percentile rank of 8. The patient was 1/5 for serial sevens, 2/2 for naming, 1/1 for repetition, 3/3 for auditory comprehension. She could read and followup single command and write a sentence. She was unable to accurately copy a simple geometric design. The patient was unable to accurately draw a clock and set the hands at a designated time. Letter fluency was extremely low with a raw score of 4 and percentile rank of 1. Category fluency assessed through animal was extremely low with a raw score of 8, T score 24, percentile rank of less than 1. The patient is showing impairment with immediate recall, sustained concentration and attention, visual spatial construction and executive functioning. DIAGNOSTIC IMPRESSION: 1. Neurocognitive disorder, unspecified -- extent to be determined, likely in the moderate range. 2. Bipolar disorder by history. 3. Adjustment disorder with anxious mood. RECOMMENDATIONS: The patient will likely require assistance in the management of medication, finances, and nutrition upon discharge. She will require help with nutrition management upon return from the hospital home. Family will likely be necessary for her to maintain independent living within the community. Treatment program for bipolar disorder and substance abuse as an outpatient will be necessary in order to maintain continued abstinence from marijuana and methamphetamine. Mental Health Center in her community for a comprehensive [facility] [address] [place] [address] CONSULTATION Name: FIONA GONZALES Room #: 505-P [facility] IN M.R.#: [id number] Admission: 01/01/20 Attend Phys: Shawn Francisco MD Discharge: Date of : 71 Report #: [id number] treatment program that includes psychiatry, psychotherapy and case managment. Thank you very much for allowing me to provide the consultation on this patient. <ELECTRONICALLY SIGNED> By: Austin Cole, PhD 01/11/20 1611 [id number] 1451 Austin Cole, PhD /nt
[2020-01-11 20:30] VITALS: BP 143/95
--- NOTE | 2020-01-11 23:13 | NUR ---
ASSUMED CARE OF PT AT 1915. PT IS A&OX4. IS ON ROOM AIR. DENIES PAIN. IS STABLE. TANSFERS WITH ASSIST X1, GB, SLIDE BOARD TO COMMODE & WC. FALL PRECAUTIONS & HOURLY ROUNDING CONTINUED THIS SHIFT. ROSALIO DYSON CHANGED BY DAY NURSE, C/D/I. PT HAS RIGHT CHEST TIC DOUBLE LUMEN & LEFT CHEST TESIO FOR DIALYSIS. LABS & VITALS REVIEWED. PT IS CURRENTLY IN BED SLEEPING. CALL LIGHT WITHIN REACH. WILL CONTINUE TO MONITOR.
[2020-01-12 07:20] VITALS: BP 155/94
--- NOTE | 2020-01-12 11:03 | PLAN ---
[facility] [place] [address] REHAB UNIT PLAN OF CARE Name: FIONA GONZALES Room #: 505-P ADM IN M.R.#: [id number] Admission: 01/01/20 Attend Phys: Shawn Francisco MD Discharge: Date of : 71 Report #: [id number] THIS REPORT FOR: //name// CC: Shawn Francisco [facility] physician/PCP DATE OF SERVICE: 01/03/2020 PROGRESS NOTE AND OVERALL PLAN OF CARE SUBJECTIVE: The patient is seen back in followup. Pulse 102, respirations 17, blood pressure 171/92. She is in no distress and was seen earlier. She underwent a swallow evaluation today in speech therapy with recommendations for nectar thick liquids. In physical therapy, she is mod assist, bed to wheelchair transfers utilizing the sliding board. She is also mod assist, bed to chair. In occupational therapy, lower body dressing is min assist with upper body supervision. ASSESSMENT: 1. Status post bilateral below-knee amputations approximately 2 weeks ago. 2. Metabolic encephalopathy. 3. Acute renal insufficiency superimposed on chronic kidney disease, on hemodialysis. 4. Anemia. 5. Hepatitis C, active. 6. Candidemia. 7. Recent sepsis with multiorgan dysfunction. 8. Severe protein-calorie malnutrition. 9. Diabetes mellitus type 2. 10. Polysubstance abuse with IV drugs, tobacco. PLAN: The overall plan of care is based on the preadmission screen, post-admission physician evaluation and information garnered from therapy assessments. 1. Estimated length of stay is probably at least 2 weeks and likely longer pending her needs. 2. Medical prognosis is reasonably good. 3. Anticipated interventions includes the interdisciplinary acute inpatient rehabilitation program. 4. Anticipated functional outcomes would be for her to become modified independent with basic transfers and ADLs and to assess her DME needs. 5. Discharge destination would be back to the home setting. She has been living in a house apparently that her uncle gave her and there are other family members that are involved. 6. Expected therapy by discipline includes PT, OT and speech 1 hour per day [address] [address] REHAB UNIT PLAN OF CARE Name: FIONA GONZALES Room #: 505-P [facility] IN ..#: [id number] Admission: 01/01/20 Attend Phys: Shawn Francisco MD Discharge: Date of : 71 Report #: [id number] each five days a week throughout the duration of the acute inpatient rehabilitation stay. <ELECTRONICALLY SIGNED> By: Shawn Francisco MD 01/12/20 1103 1117 [id number] Shawn Francisco MD /nt
--- NOTE | 2020-01-12 11:03 | H ---
[facility] [place] [address] HISTORY AND PHYSICAL Name: FIONA GONZALES Room #: 505-P ADM IN M.R.#: [id number] Admission: 01/01/20 Attend Phys: Shawn Francisco MD Discharge: Date of : 71 Report #: [id number] THIS REPORT FOR: cc: CHULA - No family physician/PCP CHULA - No family physician/PCP Shawn Francisco MD ~ CC: Shawn QUIROS physician/PCP DATE OF SERVICE: 01/01/2020 HISTORY AND PHYSICAL/POST-ADMISSION PHYSICIAN EVALUATION HISTORY OF PRESENT ILLNESS: The patient is a 44-year-old white female who originally was admitted to [facility] on 11/20/2019 with sepsis, pneumonia, multiorgan failure, developed necrosis, gangrene, bilateral lower extremities, requiring bilateral below-knee amputations approximately 2 weeks ago. She was started on hemodialysis for renal failure, was given antibiotics. Multiple financial management consultant physicians were involved. She was noted to have left AMA. Apparently was upset about the BKA, called her sister to come pick her up from the hospital. She went home without any wheelchair or therapies and apparently her brother was carrying her around. She was debilitated from having bilateral below-knee amputations and has been admitted for acute in-hospital inpatient rehabilitation. Past medical history, habits, social history: All as noted. History of tobacco and polysubstance abuse. ALLERGIES: No known drug allergies. MEDICATIONS: Please see the full medication listing. REVIEW OF SYSTEMS: No chest pain, shortness of breath, abdominal discomfort. Please see the full review of systems as noted. PHYSICAL EXAMINATION: GENERAL: Slender, 44-year-old white female in no obvious distress. VITAL SIGNS: Last recorded temperature 36.9, pulse 87, respirations 20, blood pressure 154/97. She is alert. HEENT: Appeared to be benign. NEUROLOGIC: Cranial nerves are grossly intact. Facies are symmetric. CHEST: Sounded clear to auscultation. CARDIOVASCULAR: Regular rate and rhythm. ABDOMEN: Bowel sounds positive, nontender. GENITOURINARY AND RECTAL: Deferred. EXTREMITIES: She has functional range of motion of both upper extremities with [facility] [address] [place] [address] HISTORY AND PHYSICAL Name: FIONA GONZALES Room #: 505-P [facility] IN [facility].#: [id number] Admission: 01/01/20 Attend Phys: Shawn Francisco MD Discharge: Date of : 71 Report #: [id number] strength grade 3+ to 4-/5. Tone appeared to be intact. Left BKA incision with wyatt. No drainage or signs of infection. Right BKA incision wyatt with some open area of dried drainage and mild redness noted. She is able to move both legs. Strength probably a grade 3+/5 and has reasonable range of motion of the knees. She is requiring max verbal cues for transfers to the wheelchair and did not want to use a sliding board. ASSESSMENT: A 44-year-old white female with the following problem list: 1. Ischemia with necrosis and gangrene, status post bilateral below-knee amputation approximately 2 weeks ago. 2. Metabolic encephalopathy. 3. Acute renal insufficiency superimposed on chronic kidney disease, on hemodialysis. 4. Anemia. 5. Hepatitis C, noted to be active. 6. Candidemia. 7. Recent sepsis with multiorgan dysfunction. 8. Severe protein-calorie malnutrition. 9. Diabetes mellitus type 2. 10. Polysubstance abuse, utilizing IV drugs and tobacco. PLAN: The patient has been admitted for acute in-hospital inpatient rehabilitation. From a postadmission physician evaluation perspective, there are no relevant changes since the preadmission screening. Please see the above review of prior and current medical and functional conditions and comorbidities. Please see the patient's previous and current functional status. As far as risk of complications, the patient has multiple medical comorbidities as noted above. Initial plan of care involves the interdisciplinary acute inpatient rehabilitation program. Measurable functional goals would be for the patient to improve as far as basic transfers, mobility, ADLs as well as cognition issues, so that she can hopefully return back to her prior living situation. Will need to look at durable medical equipment for her. Prognosis is reasonably good with estimated length of stay probably at least 2 weeks. Potential barriers would include her multiple medical comorbidities and decreased functional status. Please see the already documented history and physical. I agree with the findings as noted. <ELECTRONICALLY SIGNED> By: Shawn Francisco MD 01/12/20 1103 1514 1545 Shawn Francisco MD /nt
[2020-01-12 18:27] LABS: URINE CREATININE 50.4
[2020-01-12 20:47] VITALS: BP 166/98
--- NOTE | 2020-01-12 21:09 | NUR ---
ASSUMED CARE OF PT AT 0700. PT IS A&OX3 VITAL SIGNS ARE STABLE. PT REPORTED HEADACHE AND PAIN TO BILATERAL BKA IN AM. PAIN MANAGED WITH PO MEDICAITONS AND PT PARTICIPATED IN SCHEDULED THERAPIES. SISTER VISITED WITH PT THIS EVENING AND BROUGHT FOOD. SISTER EDUCATED ABOUT SWALLOW PRECAUTIONS AND INSTRUCTED TO ENSURE THAT STAFF ASSISTS PT TO DINING AREA FOR ALL MEALS AND SUPERVISION WELL TO ENSURE THAT FOOD AND DRINKS ARE NOT LEFT AT THE BEDSIDE. SISTER EXPRESSED UNDERSTANDING. DIALYSIS THIS EVENING. DIALYSIS NURSE AT THE BEDSIDE AT SHIFT CHANGE. FALL PRECAUTIONS IN PLACE AND NURSING WILL CONTINUE TO MONITOR.
--- NOTE | 2020-01-13 01:41 | NUR ---
PT ALERT AND ORIENTED X 3. ON DIALYSIS ALL EVENING. RIGHT TICC LINE INTACT AND PATENT. LEFT TESSIO DRESSING C/D/I. PT TOOK MEDS CRUSHED IN APPLESAUCE WITHOUT DIFFICULTY. BILATERAL BKA DRESSINGS C/D/I. PT C/O HEADACHE. HYDROCODONE GIVEN WITH RELIEF OF PAIN VERBALIZED. BED ALARM ON FOR SAFETY. PT APPEARS TO BE SLEEPING ON HOURLY ROUNDS.
[2020-01-13 03:30] VITALS: BP 159/81
--- NOTE | 2020-01-13 04:15 | NUR ---
HEARD PT MAKING NOISE IN ROOM. (PT SOMETIMES HAS NIGHT TERRORS). WENT IN TO ROOM AND FOUND PT SITTING ON THE FLOOR SCOOTING TOWARDS THE BSC. PT STATED SHE NEEDED TO GO TO THE BATHROOM. PT VERY AGITATED, CALLING STAFF NAMES AND TELLING STAFF TO LEAVE HER ROOM. PT INCONT OF URINE ON FLOOR AFTER FALL. PT DENIES PAIN. STATED SHE DIDN'T HURT ANYTHING. NO APPARENT INJURY. ASSISTED BACK TO BED WITH 2 STAFF. VS 98-109-20, 159/81. 02 SAT 95% ON RA. CORI PRECIADO NP NOTIFIED. PEBBLE MILL OPERATOR MONIKA NOTIFIED. SISTER GLENIS NOTIFIED. BED ALARM ON FOR SAFETY. PT CHECKED ON HOURLY ROUNDS.
[2020-01-13 04:30] VITALS: BP 159/88
[2020-01-13 08:45] VITALS: BP 143/84
--- NOTE | 2020-01-13 10:46 | NUR ---
ASSUMED CARE AT 0700. PATIENT IS ALERT AND ORIENTED X4, BUT FORGETFUL. PATIENT CHARLES'S, BUT HAS BILATERAL AMPUTEE BELOW THE KNEE. STORAGE MANAGEMENT ARCHITECT ARE EQUAL. LUNGS ARE CLEAR AND DEMINISHED. ABD IS SOFT WITH BSX4. VOIDS SMALL AMOUNTS AT TIMES. PATIENT IS DIALYSIS PATIENT. PATIENT HAS LEFT CHEST TESSIO AND TICC LINE FOR ABTS. PATIENT HAD FALL ON NOC'S. PATIENT REMOVED ALL DRESSING FROM HER STUMPS. DRESSING REAPPLIED. DOWN TO RADIOLOGY FOR VIDEO SWALLOW. WILL CONTINUE TO MONITER.
--- NOTE | 2020-01-13 11:43 | NUR ---
cm [facility] [place] [facility]. still need to have dialysis location for outpt. sister still reports anila going to stay with her and will have transportation to and from dialysis. will cont following as needed for dc needs.
[2020-01-13 19:25] VITALS: BP 164/84
--- NOTE | 2020-01-13 20:27 | NUR ---
PT CALLED EARLIER TO GO TO THE BATHROOM. I ANSWERED CALL AND TOLD HER AM COMING BACK. UPON COMING BACK, PT IS YELLING AT ME AND TELLING ME TO GO AWAY. SHE IS EXTREMELY RUDE. SHE STATES " I DONT LIKE YOU", RAISING HER VOICE. I LISTENED AND TOLD HER I WILL BE BACK TO BRING HER MEDICATIONS. PT ALSO C/O TIC LINE , I TOLD HER WE ARE WAITING UNTIL 2115HRS. SHE SAYS 'I DONT BELIEVE YOU". FALL PREC IN PLACE.
[2020-01-14 07:28] LABS: CALCIUM 8.2 mg/dL (8.5-10.1); CREATININE 2.8 mg/dL (0.6-1.0); POTASSIUM 3.2 mmol/L (3.5-5.1)
[2020-01-14 07:30] VITALS: BP 164/93
--- NOTE | 2020-01-14 09:31 | NUR ---
ASSUMED CARE AT 0700. PATIENT IS ALERT AND ORIENTED X4. PATIENT MOVES EXTREMITES AND HAS BILATERAL LEG AMPUTEE. DRESSING CHANGED TO STUMPS. SISTER AT BEDSIDE. PATIENT SISTER INSTRUCTED ON THE DRESSING CHANGES. UP IN W/C AND OUT TO THE DINING ROOM FOR MEALS WITH S.T. FALL AND SAFETY PROTOCOLS IN PLACE. DENIES PAIN AT THIS TIME. PATIENT HAS LEFT TESSIO FOR DIALYSIS. CATRACHITATENT HAS TIC LINE FOR ABTS. PATIENT USED SLIDE BOARD TRANSFER FROM BED TO THE W/C. WILL CONTINUE TO MONITER.
--- NOTE | 2020-01-14 10:43 | NUR ---
cm called [employer] 01/13/2020 in am received auth for drop down bsc, auth # [id number]. today 01/14/20 information will be provided to provider plus for wheel chair, transfer board and drop down bsc. cm spoke with [employer] auth from transfer board, equi code provided [id number] auth will be giving per [employer]. lab update faxed to [facility]. left message with id, needing to know if her iv abx would be able changed to 3 x week or po prior to dc, she is not able to be dc with another lines other than her dialysis site.
--- NOTE | 2020-01-14 13:45 | NUR ---
Nutrition: REC diet liberalization from renal to 2 gm Na (also mech altered, nectar thick liquids, no mixed consistencies) due to suboptimal intake, pt tiring of choices and both K+/Mg low, phos WNL.
--- NOTE | 2020-01-14 16:02 | NUR ---
FAXED REFERRAL TO [facility] RECEIVED CONFIRMATION AND SPOKE WITH AWA IN INTAKE THEY WILL REVIEW. DP TO FOLLOW.
[2020-01-14 19:10] VITALS: BP 147/96
--- NOTE | 2020-01-15 04:40 | NUR ---
PT ASSESSMENT COMPLETED AND VSS. MEDS GIVEN ORDERED AND WELL TOLERATED. FALL PRECAUTIONS IN PLACE. UP TO BSC USING SLIDE BOARD/GAIT/ASST. VOIDING LARGE AMOUNT OF YELLOW URINE. PT UNABLE TO COUGH UP ANY SPUTUM FOR SPUTUM SAMPLE. CUP AT BEDSIDE IN CASE SHE IS ABLE TO PRODUCE A SAMPLE. SLEEPING WELL. TURNED ON HER SIDE. DIALYSIS ACCESS AND TICC LINE WNL.
[2020-01-15 08:00] VITALS: BP 164/96
[2020-01-15 09:25] VITALS: BP 164/96
--- NOTE | 2020-01-15 09:39 | NUR ---
ASSUMED CARE OF PT AT 0715. PT IS A&OX4. VOICED FRUSTRATION OF NOT BEING ABLE TO BE DISCHARGED TODAY. THIS NURSE, THE NIGHT NURSE, ST & PHYSICAL THERAPIST PROVIDED THERAPUETIC COMMUNICATION EXPLAINING THE PROCESS OF DISCHARGE. PT IS STABLE. REPORTS PAIN IN BILAT BKAS THAT IS BEING MANAGED WITH MEDS & OTHER THERAPUETIC TECHNIQUES. DRSG C/D/I & TO BE CHANGED TODAY BY THIS NURSE. TIC LINE RIGHT CHEST. LEFT CHEST TESIO INTACT. PT IS UP WITH SLIDE BOARD, GB TRANSFER TO COMMODE & W/C. FALL PRECAUTIONS & HOURLY ROUNDING CONTINUED THIS SHIFT. LABS REVIEWED. VITALS ASSESSED. WILL CONTINUE TO MONITOR. PT IS IN ROOM IN W/C. WATHING TV. CALL LIGHT WITHIN REACH.
--- NOTE | 2020-01-15 10:00 | NUR ---
call from chas with [facility] will not accept, sending it to op location. [facility]. need covid test result and when get a chair time and location will fax it to [phone]. will cont following as needed for dc needs. still need to have id md confirm how many more day of iv abx she will need.
--- NOTE | 2020-01-15 16:08 | NUR ---
Call re'd from the pt's sister Laura inquiring about dc plans for today or tomorrow. Dc on hold today as we are continuing to work on plan for outpt dialysis tx. Pt anxious to go home soon. Support provided. Unit cm to f/u tomorrow am with both dialysis programs previously noted. Pt and sister to be updated at that time. Support provided.
[2020-01-15 20:00] VITALS: BP 125/81
--- NOTE | 2020-01-15 23:58 | NUR ---
PT ASSESSMENT COMPLETED AND VSS. MEDS GIVEN ORDERED AND WELL TOLERATED. FALL PRECAUTIONS IN PLACE. UP TO THE BSC USING SLIDE BOARD/GAIT/ASST. SLEEPING WELL. PRN PAIN MEDICATION WORKING WELL. TICC LINE AND DIALYSIS ACCESS WNL. PT REFUSED TO CHANGE FOR BED THIS EVENING. SLEEPING WELL. WILL CONTINUE TO MONITOR FREQUENTLY.
[2020-01-16 04:08] VITALS: BP 149/84
--- NOTE | 2020-01-16 05:08 | NUR ---
PT C/O R LOWER NECK PAIN. AREA SLIGHTLY RED AND WARM TO THE TOUCH ABOVE TICC LINE SITE. PT T 100.2. OTHERWISE VS ARE BASELINE. CONTACTED COMMERCIAL LOAN REVIEWER AND DESCRIBED HOW THE PAINFUL AREA LOOKED AND THAT IT WAS LOCATED ABOVE HER TICC LINE. COMMERCIAL LOAN REVIEWER ORDERED TYLENOL IF NEEDED/BLOOD CULTURES/AND IV TEAM TO SEE PT IN THE AM. PT SLEEPING NOW. APPEARS COMFORTABLE. WILL CONTINUE TO MONITOR. T RECHECK 100.
[2020-01-16 07:03] VITALS: BP 136/90
--- NOTE | 2020-01-16 07:44 | NUR ---
THIS MORNING AT 5:30 PT WAS AWAKE AND WANTING TO USE THE BSC. PT USED THE SLIDE BOARD WITH ASST AND GAIT. LARGE BM AND VOIDED. PT UPSET WITH STAFF BECAUSE SHE WANTED TO BE LEFT ALONE ON THE BSC. EXPLAINED TO PT THAT WE NEEDED TO STAY WITH HER TO MAKE SURE SHE WAS SAFE. PT UP FOR A COUPLE OF HOURS AND THEN SLEEPING THIS MORNING. PT DID NOT WANT TO BE BOTHERED WITH THERAPY AND STATED THAT SHE WANTED TO BE LEFT ALONE AND SLEEP A LITTE. CONTACTED DR TEE GARRETT THIS MORNING AND LEFT A MESSAGE WITH UPDATES ON HIS MESSAGE LINE TO MAKE HIM AWARE OF HER TEMP THIS MORNING. INFORMED HIM TO ASK FOR AIRAM ONEILL THAT HAS PT TODAY. VSS AT THIS TIME. PT REFUSED ORDERED BLOOD CULTURES DAY RN MADE AWARE.
[2020-01-16 11:47] VITALS: BP 133/81
[2020-01-16 12:53] LABS: HEMATOCRIT 25.7 % (37.0-47.0); HEMOGLOBIN 8.7 gm/dL (12.0-15.0); MCH 30.3 pg (26.0-34.0); MCHC 33.9 g/dL (28.0-37.0); MCV 89.4 fL (80.0-100.0); RBC 2.87 mil/uL (4.20-5.00); RDW 17.8 % (10.5-14.5)
[2020-01-16 13:01] LABS: CALCIUM 8.5 mg/dL (8.5-10.1); POTASSIUM 3.6 mmol/L (3.5-5.1)
--- NOTE | 2020-01-16 13:33 | NUR ---
aryan notified by cork floor installer that pt is wanting to go home, not wanting to work with therapy today. low grade temp today. cm returned call from pt sister dayana, " she is so down, mentally and i want to cheer her up, i am watching her dog, have bathed it, can i let her visit with her, she just been in hospital so long she is ready to get out"/dayana [phone]. cm passed on information to acute rehab nurse volunteer services supervisor to call the sister. cm left message for ace to see if have location or a chair time yet?. will cont following as needed for dc needs.
--- NOTE | 2020-01-16 15:58 | NUR ---
ASSUMED CARES AT 0700. PT ORIENTED TO PERSON AND PLACE. FORGETFUL, DEPRESSED AND WITHDRAWN THIS AM AFTER SHE LEARNT THAT SHE WASN'T DC TODAY. VITALS REMAIN STABLE. NO FEVERS NOTED THIS SHIFT. PT REFUSED THERAPIES TODAY STATING "IF AM NOT GOING TODAY I DONT WANT TO DO THERAPY". DIALYSIS CATHETER REMAINS DRY AND INTACT. TICC LINE REMAINS DRY AND INTACT, NO REDNESS OR IRRITATION NOTED AROUND THE SITE. BLOOD CULTURES DRAWN PER ORDER. DRESSING CHANGED BY IV NURSE. WOUNDCARE TO AMPUTATION SITES COMPLETED, GENTAMICIN ADMINISTERED TO SITE. PT UP WITH MAX ASSIST OF 1 AND SLIDEBOARD, TOLERATED WELL. FREQ. VISUAL CHECKS. CALL LIGHT WITHIN REACH. FALL PRECAUTIONS IN PLACE
[2020-01-16 16:30] VITALS: BP 143/90
--- NOTE | 2020-01-16 16:45 | NUR ---
BED ALARM SOUNDED. PT EMILIANA CURRAN WENT IMMEDIATELY TO ROOM AND PATIENT WAS ON THE FLOOR BESIDE THE BED, LEGS IN FRONT OF HER, SITTING ON HER BOTTOM. RN FOLLOWED PT AND PATIENT STATED, "I GOT MYSELF UP TO GO TO THE BATHROOM." WHEN ASKED WHY SHE DIDN'T CALL FOR ASSIST, PT STATED, "I WANTED TO DO IT MYSELF."
[2020-01-16 17:30] VITALS: BP 148/85
[2020-01-16 20:10] VITALS: BP 136/82
--- NOTE | 2020-01-17 01:36 | NUR ---
ASSUEMED PT CARE AROUND 1930. AXOX2. VSS. NO S/S ACUTE DISTRESS NOTED OR REPORTED AT THIS TIME. WILL CONT TO MONITOR FOR ANY CHANGES IN CONDITION.
[2020-01-17 04:17] VITALS: BP 165/85
[2020-01-17 04:23] VITALS: BP 165/85
--- NOTE | 2020-01-17 04:37 | NUR ---
AROUND 0410, BED ALARM RANG AND PT WAS FOUND ON THE FLOOR. SAME EVENT HAPPENED YESTURDAY DURING DAY SHIFT. PT WAS ON THE FLOOR PROPELLING WITH HER ARMS SAYING THAT "I NEED TO FUCKING GO TO MY CAR". PT WAS SEEN AROUND 0400 WITH AID FOR ASSISTANCE WITH BATHROOM. NO INJURIES REPORTED OR NOTED. VITAL SINGS TAKEN. REPORTED TO JUAN PABLO KENNY CHIEF PROGRAM OFFICER, SCROLL ASSEMBLER, LEFT VOICE MESSAGE TO YANICK BOWERS @ [phone]. PT IS CONFUSED AND NOT FULLY ORIENTED. PRIOR ASSESSMENT REVEALED PT'S ONLY AXOX1. PT WAS PUT BACK TO BED, BED LOWEST POSITION, BED ALARM ON. WILL CONT TO MONITOR FOR ANY CHANGES IN CONDITION.
[2020-01-17 08:30] VITALS: BP 149/84
--- NOTE | 2020-01-17 19:20 | NUR ---
Alert and orientated X3. Calm and cooperative most of the day with the exception of becoming frustrated d/t having to be supervised, having to drink thickened fluids and wanting to go home. Calmed down within 10 min. Reported SEO which she received Tylenol and oxycodone. Dialysis done with some leg cramps at the end of cycle. hunter guide reported that she pulled off 1.099L. Breath sounds clear. Reg HR auscultated. Color pink with brisk capillary refill and palpable peripheral pulses. Active bowel sounds over soft, flat abdomen. BM reported last night. Able to transfer self to and self propel WC under supervision. Double lumen L subclavian soft and flat without s/o infection/infiltration, drsg changed by dialysis nurse. Double lumen TICC line per R mid chest, site soft and flat, drsg intact, no s/o infection/infiltration. Currently sleeping in bed without s/o distress.
[2020-01-17 19:30] VITALS: BP 145/75
--- NOTE | 2020-01-18 02:52 | NUR ---
DRESSING OFF SO REDONE ON RIGHT BKA STARTING WITH GENTAMICIN TO OPEN SPOT ORDERED AND PATIENT ALSO STATES IT HELPS WITH PAIN. TYLENOL GIVEN FOR HEADACHE. RIGHT SUBCLAVIAN CENTRAL LINE FLUSHES EASILY, LEFT SUBCLAVIAN RESERVED FOR DIALYSIS IS CDI. RESTING, TURNING SELF, HAS BLANKET FROM HOME.
[2020-01-18 08:39] VITALS: BP 159/101
--- NOTE | 2020-01-18 18:35 | NUR ---
ALERT AND OREIENTED. VERY PLESANT AND COOPERATIVE. TRANSFERS WITH MINIMAL ASSIST USING SLIDING BOARD. STUMP DRESSINGS COMPLETED AND WRAPPED WITH ALEXANDER. TYLENOL GIVE FOR HEADACHE WITH GOOD RELIEF.
[2020-01-18 20:45] VITALS: BP 150/92
--- NOTE | 2020-01-19 04:00 | NUR ---
RECIEVED CARE OF THIS PATIENT AT 1900. PATIENT ALERT AND ORIENTED X4. HAS ORAL BKA. DRESSINGS ON BOTH LEGS D/I. PATIENT HAS DIALYSIS CATH AND SUB FOR IV USE. GETS UP IN W/C BUT REMAINED IN BED THIS SHIFT. DENIES PAIN. SLEPT MOST OF NIGHT.
[2020-01-19 07:45] VITALS: BP 168/98
--- NOTE | 2020-01-19 09:50 | NUR ---
artem with tarik called " have chair time 0530 am, start date on 01/20/2020 in [facility] location "/artem. cm noted in md notes, iv abx completed and will be changed to po abx at dc. aryan called main office of [facility]. will see if dme equip can be delivered here today and notified sister dayana, confirmed address [id number] [place] [id number], # [phone]
[2020-01-19] MEDS ORDERED: CALTRATE-600 W1 EACH PO ×2 (10:30→20:30)
[2020-01-19] MEDS ORDERED: NORVASC5 MG PO ×2 (10:30→20:30)
[2020-01-19] MEDS ORDERED: GENTAMICIN SULF15 GM TOP ×2 (10:30→20:30)
[2020-01-19] MEDS ORDERED: METOPROLOL SUCC50 MG PO ×2 (10:30→20:30)
[2020-01-19] MEDS ORDERED: AUGMENTIN 875-1 EACH PO ×2 (10:30→20:30)
[2020-01-19] MEDS ORDERED: PROBIOTIC1 EAC2 PO ×2 (10:30→20:30)
[2020-01-19] MEDS ORDERED: REMERON 30 MG T30 M1 PO ×2 (10:30→20:30)
[2020-01-19] MEDS ORDERED: NEURONTIN 300M300 M2 PO ×2 (10:30→20:30)
[2020-01-19] MEDS ORDERED: MIRALAX17 GM PO (10:30)
[2020-01-19] MEDS ORDERED: BANOPHEN25 M1 PO (10:30)
--- NOTE | 2020-01-19 16:06 | NUR ---
ASSUMED CARE OF PT AT 0715. PT IS A&OX4. IS ON ROOM AIR. DENIES PAIN IN BILAT BKAS. DRSG CHANGES COMPLETED BY THIS NURSE. IMAGES IN CHART. STUMP SHRINKERS IN PLACE. LABS & VITALS REVIWED. PT PREPARING TO DC HOME. RIGHT CHEST TICC LINE DC'D BY IR. LABS & VITALS REVIEWED. PT TRANSFERS VIA SLIDE BOARD, GB. FALL PRECAUTIONS & HOURLY ROUNDING CONTINUED THIS SHIFT. WILL CONTINUE TO MONITOR.
[2020-01-19 16:12] VITALS: BP 164/96
--- NOTE | 2020-01-19 17:56 | NUR ---
THIS NURSE DISCHARGED PT AT APPROXIMATELY 1700 THIS EVENING. DISCUSSED DISCHAGE INSTRUCTION WITH SISTER GLENIS & PT. FORM SIGNED & IN CHART. RIGHT CHEST TICC LINE REMOVED BY IR. BANDAGE IN PLACE. ALL BELONGINGS INCLUDING W/C, SLIDDING BOARD, PHONE FINANCE OFFICER SENT WITH PT. PT WAS STABLE. DENIED PAIN.
--- NOTE | 2020-01-20 15:32 | NUR ---
PT DISCHARGED YESTERDAY LATE TO HOME WITH [facility] FAXED DC ORDERS/SUMMARY SPOKE WITH REJI IN INTAKE SHE RECEIVED ORDERS AND WANTED TO KNOW WHAT HOSPITALIST WILL FOLLOW PT FOR HH TIL SHE ESTABLISHES [place] [facility] [place] SPOKE WITH [place] AND SHE SAID DR BELL WILL FOLLOW FOR HH. NOTIFIED [facility] AND THEY WILL CALL PT TO SET UP VISITS.
== END 2020-01-19 17:03 | disposition home health service (06) | DRG 70 ==
PROVIDERS: Hospitalist; Internal Medicine Nephrology; Nurse Practitioner; Nurse Practitioner Family; Radiology Vascular & Interventional Radiology; ADMIT Physical Medicine & Rehabilitation; ATTEND Physical Medicine & Rehabilitation
DX: G93.41 Metabolic encephalopathy (principal); E43 Unspecified severe protein-calorie malnutrition; A41.9 Sepsis, unspecified organism; N17.9 Acute kidney failure, unspecified; F19.20 Other psychoactive substance dependence, uncomplicated; N18.9 Chronic kidney disease, unspecified; D64.9 Anemia, unspecified; Z99.2 Dependence on renal dialysis; E11.22 Type 2 diabetes mellitus with diabetic chronic kidney disease; Z89.512 Acquired absence of left leg below knee; Z89.511 Acquired absence of right leg below knee
CPT/HCPCS: 10112; 32100

== ENCOUNTER 2020-02-13 19:56 | Emergency (ER) | payer OTHER ==
[~2020-02-13] VITALS: Ht 121.9 cm; Wt 34.0 kg
[~2020-02-13 19:56] MED LIST changes: +AMITIZA 24 MCG24 MC1 PO; +AUGMENTIN 875-1 EACH PO; +BANOPHEN25 M1 PO; +CALTRATE-600 W1 EACH PO; +COLACE100 MG PO; +ELIQUIS5 MG PO; +FLEXERIL PO; +GENTAMICIN SULF15 GM TOP; +LIDODERM1 EACH; +METOPROLOL SUCC50 MG PO; +MIRALAX17 GM PO; +NEURONTIN 300M300 M2 PO; +NORVASC5 MG PO; +PROBIOTIC1 EAC2 PO; +PROTONIX40 M2 PO; +REMERON 30 MG T30 M1 PO; +TOPROL XL25 MG PO
[2020-02-13] MEDS ORDERED: REMERON15 M2 PO (20:11)
[2020-02-13] MEDS ORDERED: MOBIC15 MG PO (23:21)
[2020-02-14 01:54] VITALS: BP 102/68
== END 2020-02-14 00:30 | disposition home or self-care (01) ==
LOC: ER 19:56
DX: S01.21XA Laceration without foreign body of nose, initial encounter (principal); S51.811A Laceration without foreign body of right forearm, initial encounter; F17.210 Nicotine dependence, cigarettes, uncomplicated; E11.9 Type 2 diabetes mellitus without complications; N18.9 Chronic kidney disease, unspecified; Z86.2 Personal history of diseases of the blood and blood-forming organs and certain disorders involving the immune mechanism; Z79.899 Other long term (current) drug therapy; Z90.49 Acquired absence of other specified parts of digestive tract; Z99.2 Dependence on renal dialysis; Z90.710 Acquired absence of both cervix and uterus; W06.XXXA Fall from bed, initial encounter; Y93.89 Activity, other specified; Y92.89 Other specified places as the place of occurrence of the external cause; Y99.8 Other external cause status

== ENCOUNTER 2020-02-21 23:01 | Inpatient (IN) | payer OTHER ==
[~2020-02-21] VITALS: Ht 121.9 cm; Wt 38.1 kg
--- NOTE | ~2020-02-21 | HC ---
[facility] [place] [address] CONSULTATION Name: FIONA GONZALES Room #: 434-P ADM IN M.R.#: [id number] Admission: 02/22/20 Attend Phys: Oleg Mckeon MD Discharge: Date of : 71 Report #: [id number] THIS REPORT FOR: cc: [facility] - Clinic physician unknown [facility] - Clinic physician unknown Oscar Wilson MD ~ CC: [facility] unknown Oleg Mckeon DATE OF SERVICE: 02/22/2020 INFECTIOUS DISEASE CONSULTATION ATTENDING PHYSICIAN: Dr. Mckeon. REASON FOR EVALUATION: Left bcyxl-qdg-siyf amputation, stump inflammation, potential skin and soft tissue infection with probable complicated UTI as well. HISTORY OF PRESENT ILLNESS: Chart reviewed, patient examined. This 44-year-old known to our service, has extensive medical history over recent months, had been admitted with septic shock, was diagnosed with legionella pneumonitis, was complicated by multiple organ failure and ultimately had severe ischemic changes noted bilaterally and underwent bilateral wrifx-nlf-wqim amputation with a prolonged recovery. She is admitted at home and remains weak. She noted she fell out of bed last week, presented to the Emergency Room with complaint of increasing pain, discomfort associated with left lower extremity surgical site, increased drainage. She had some temperature elevations as well. Denies any recent antecedent injury. CBC was remarkable for hemoglobin of 7.1. CRP was elevated at 63.6. Lactic acid 0.8 and a creatinine of 2.0 with an albumin of 2.3. Drug screen was negative. Urinalysis did show 6-15 white cells, 2+ leukocytes. Plain film of the lower extremity on the left, some soft tissue edema and swelling. No clear bony erosion at the cut margin. She was empirically started on antibiotics with vancomycin and Zosyn. ALLERGIES: None known. MEDICATIONS: As described above, vancomycin, Zosyn, ferrous sulfate, insulin lispro sliding scale, fentanyl, acetaminophen, ondansetron as needed. PAST MEDICAL HISTORY: As described above, history of septic shock, multiorgan failure, now on dialysis due to chronic renal failure, has bilateral below-knee amputations due to ischemia, chronic anemia, history of diabetes mellitus, chronic hepatitis C, previous cholecystectomy, tubal ligation. SOCIAL HISTORY: Former smoker, past polysubstance abuse, distant alcohol use. [address] [address] CONSULTATION Name: FIONA GONZALES Room #: 434-P [facility] IN .R.#: [id number] Admission: 02/22/20 Attend Phys: Oleg Mckeon MD Discharge: Date of : 71 Report #: [id number] FAMILY HISTORY: Noncontributory. REVIEW OF SYSTEMS: As above, otherwise unremarkable. PHYSICAL EXAMINATION: GENERAL: She appears chronically ill, undernourished. She does arouse. She is somewhat lethargic, in moderate distress. VITAL SIGNS: T-max overnight 100.6, more recently 99, pulse 103, respirations 15, blood pressure 146/95. SKIN: Warm, dry, no rashes. HEENT: Normocephalic. NECK: Supple. Extraocular muscles are intact. LUNGS: Few scattered crackles at the bases. HEART: Regular. Borderline tachycardic. I do not appreciate a murmur. ABDOMEN: Soft, nontender. EXTREMITIES: Bilateral lower extremities BKA stumps left side. There is moderate degree of inflammation, has Steri-Strips in place, transversely oriented incision, some evidence of drainage. There is no significant dehiscence that I can appreciate. GENITOURINARY AND RECTAL: Deferred. LABORATORY DATA: CBC: White count 9.0, H and H 7.1 and 20.7, platelets of 215. CRP of 63.6. Electrolytes: Sodium 136, potassium 4.0, chloride 100, bicarbonate 27, anion gap of 9, BUN and creatinine 24 and 2.0, glucose of 88. AST of 20, ALT of 27. Albumin of 2.3. Total protein 5.9, estimated GFR of 27. Lactic acid 0.8. Drug screen was negative. Urinalysis did show 6-15 white cells. ASSESSMENT AND PLAN: Febrile illness with suspected left llyvl-ztr-tfes amputation, surgical site infection. We will continue empiric antimicrobial therapy. Culture from the drainage is pending as well as blood and urine cultures. She appears somewhat tenuous at this point, although not overtly toxic. We will monitor expectantly. Add incentive spirometry. Continue to optimize her nutritional status. Clearly, she is undernourished. By: [id number] Oscar Wilson MD /nt
[~2020-02-21 23:01] MED LIST changes: +MOBIC15 MG PO; +REMERON15 M2 PO
[2020-02-21 23:08] VITALS: BP 135/102
[2020-02-22 00:33] LABS: ABSOLUTE NEUTROPHILS 5.6 thou/uL (1.4-8.2); EOSINOPHILS 2.4 % (0.0-3.0); HEMATOCRIT 20.7 % (37.0-47.0); HEMOGLOBIN 7.1 gm/dL (12.0-15.0); LYMPHOCYTES 26.2 % (24.0-44.0); MCH 30.2 pg (26.0-34.0); MCHC 34.3 g/dL (28.0-37.0); PLATELET COUNT 215 thou/uL (150-400); POLYS 62.4 % (36.0-66.0); RBC 2.36 mil/uL (4.20-5.00); RDW 14.2 % (10.5-14.5)
[2020-02-22 00:42] LABS: CALCIUM 8.1 mg/dL (8.5-10.1)
[2020-02-22 00:48] LABS: ALBUMIN 2.3 g/dL (3.4-5.0); TOTAL BILIRUBIN 0.2 mg/dL (0.2-1.0); TOTAL PROTEIN 5.9 g/dL (6.4-8.2)
[2020-02-22 01:23] VITALS: BP 135/102
[2020-02-22 02:04] LABS: URINE BILIRUBIN NEGATIVE (Negative); URINE BLOOD TRACE (Negative); URINE CLARITY CLEAR; URINE COLOR YELLOW; URINE GLUCOSE-RANDOM* NEGATIVE (Negative); URINE KETONES NEGATIVE (Negative); URINE NITRITE-REFLEX NEGATIVE (Negative); URINE PROTEIN (DIPSTICK) 1+ (Negative); URINE SPECIFIC GRAVITY 1.015 (1.005-1.035); URINE UROBILINOGEN 0.2 E.U./dl (0.2-1.0)
[2020-02-22 02:05] LABS: URINE LEUKOCYTES-REFLEX 2+ (Negative)
[2020-02-22 02:13] LABS: AMP/METHAMP Negative (Negative); BARBITURATES Negative (Negative); BENZODIAZEPINES Negative (Negative); COCAINE Negative (Negative); METHADONE Negative (Negative); OPIATES Negative (Negative); PCP Negative (Negative)
[2020-02-22 02:15] VITALS: BP 135/102
[2020-02-22 02:21] LABS: CASTS None Seen /LPF (None Seen); MUCUS 0-3 Light strn/LPF (None Seen); SQUAMOUS 4-10 Moderate /LPF (0-3)
[2020-02-22 02:22] LABS: URINE RBC 0-2 Rare /HPF (0-2); URINE WBC-REFLEX 6-15 Few /HPF (0-5)
[2020-02-22 02:23] VITALS: BP 173/81
[2020-02-22 02:23] LABS: BACTERIA-REFLEX 1-9 Few /HPF (None Seen); CRYSTALS None Seen /LPF (None Seen)
--- NOTE | 2020-02-22 03:24 | NUR ---
ADMISSION COMPLETED. PT ALERT AND ORIENTED. COOPERATIVE WITH ANSWERING QUESTIONS. PT HERE WITH INFECTED L STUMP WOUND.IV ABTS STARTED. L STUMP ELEVATED. LOOKS SWOLLEN, WARM AND WITH REDNESS. SOME BLOODY DRAINAGE ALSO NOTED. PT HAS A FEVER OF 100.6, GIVEN TYLENOL BOTH FOR FEVER AND FOR A HEADACHE. SHE DENIES ANY SOA OR COUGH. FALL EDUCATION PROVIDED.ORIENTATION TO ROOM AND STAFF.WILL CONTINUE WITH POC TILL EOS.
[2020-02-22 07:06] VITALS: BP 146/95
[2020-02-22 19:06] VITALS: BP 148/88
--- NOTE | 2020-02-22 20:01 | NUR ---
PT ASSESSED AT START OF SHIFT. NO C/O PAIN. SLEPT ALOT SHE CAME IN THE MIDDLE OF THE NOC. LT STUMP W/ SMALL DIHISCED AREA W/ STERI STIPS INTACT XEROFORM GAUZE APPLIED W/ GAUZE AND KERLIX. EATING FAIR. USING BSC AND VOIDED SEVERAL TIMES. DR. STANTON IN AND MONITORING LABS TO DECIDE ABOUT CONTINUING HEMODIALYSIS.
--- NOTE | 2020-02-23 02:53 | NUR ---
CARE ASSUMED 1900. PT ALERT AND ORIENTED. DENIES CHEST PAIN NAUSEA OR VOMITING. NO FEVER. OVERNIGHT, PT C/O HEADACHE AT THE BEGINNING OF THE SHIFT, ALLEVIATED BY PRN TYLENOL. PT ON ABX, BILATERAL AKA, SELF REPOSITIONS HERSELF IN BED. LEFT CHEST DIALYSIS CATHETER INTACT, NO DRAINAGE NO REDNESS. WILL CONTINUE TO MONITOR AND FOLLOW POC
[2020-02-23 03:44] VITALS: BP 167/92
[2020-02-23 06:06] LABS: HEMOGLOBIN 8.3 gm/dL (12.0-15.0); MCH 29.4 pg (26.0-34.0); MCHC 33.4 g/dL (28.0-37.0); MCV 87.9 fL (80.0-100.0); RBC 2.84 mil/uL (4.20-5.00); RDW 13.9 % (10.5-14.5); WBC 9.7 thou/uL (4.0-11.0)
[2020-02-23 06:17] LABS: ALBUMIN 2.2 g/dL (3.4-5.0); CALCIUM 9.1 mg/dL (8.5-10.1); CREATININE 2.9 mg/dL (0.6-1.0); PHOSPHORUS 4.3 mg/dL (2.5-4.9); POTASSIUM 4.1 mmol/L (3.5-5.1)
--- NOTE | 2020-02-23 07:20 | HC ---
[facility] [place] [address] CONSULTATION Name: FIONA GONZALES Room #: 434-P ADM IN M.R.#: [id number] Admission: 02/22/20 Attend Phys: Mick Macdonald Discharge: Date of : 71 Report #: [id number] THIS REPORT FOR: cc: [facility] - Clinic physician unknown [facility] - Clinic physician unknown Enrique Ferraro MD ~ CC: [facility] unknown Oleg Mckeon DATE OF SERVICE: 02/22/2020 NEPHROLOGY CONSULTATION REASON FOR CONSULTATION: Renal failure with recent requirement of hemodialysis. HISTORY OF PRESENT ILLNESS: This is a 44-year-old female, who was admitted to the hospital because of drainage and infection of her left ebtnh-voq-cftw amputation stump. She was admitted to the hospital for further care of that. She has not had fever. She did not have leukocytosis with a white blood cell count 9.0. Her recent history is that she was in another hospital for a lengthy period of time over, what sounds like, November and December of 2019. With that, she was septic, had pneumonia. She developed bilateral lower extremity ischemia. She underwent bilateral ourts-lix-eumq amputations. During all of that time, she developed renal failure and was started on chronic hemodialysis using a left internal jugular vein tunneled dialysis catheter. Upon discharge, she was continued on dialysis. She was admitted to [facility] in 12/2019. At that point, she had a creatinine level between 3.8 and 4.8 during that hospitalization. At one point, it dropped lower than that. We did a 24-hour urine looking for creatinine clearance. It was a suboptimal study as her total creatinine excreted during that time as her total creatinine was only 126 mg. She is a very small stature, particularly with qwsnj-vrt-fjdf amputations, so that her total weight is only about 40 kilos. That would only total 3 mg/kg of creatinine excreted, which would be far below the low end of normal, so I think that was a suboptimal collection. Nevertheless, upon discharge, she went back to dialyzing. She dialyzes on a Sunday, , Sunday basis at [facility] in [place]. She did dialyze on 02/21/2020, which was the day prior to hospitalization. She says she cut her time short and she only dialyzed for 2 hours. She is making enough urine output. They do not take any volume off with dialysis. Upon presentation in the Emergency Room, her creatinine level was 2.0. This is the lowest it has been on recent checks. PAST MEDICAL HISTORY: Diabetes mellitus. She has developed renal failure, of which the current extent is undetermined. She had a bilateral qkwdn-bvf-thpe amputations and the recent long hospitalization. She has had anemia. She has been dialyzing using a tunneled left internal jugular vein catheter. [address] [address] CONSULTATION Name: FIONA GONZALES Room #: 434-P [facility] IN M.R.#: [id number] Admission: 02/22/20 Attend Phys: Mick Macdonald Discharge: Date of : 71 Report #: [id number] MEDICATIONS: As listed on admission were meloxicam 15 mg daily, metoprolol 100 mg daily, amlodipine 5 mg daily and gabapentin 300 mg b.i.d. ALLERGIES: No known medical allergies. FAMILY HISTORY: Undetermined. SOCIAL HISTORY: The patient is single, lives in [place], [place]. She is medically disabled. REVIEW OF SYSTEMS: States she feels okay. She is clear in stating she does not like being on dialysis. She passes a lot of urine. She is wondering if she can come off. She denies dyspnea, cough, nausea, vomiting, chest pain or change in bowel habits. PHYSICAL EXAMINATION: GENERAL: A 44-year-old female, once again a very small stature. Last weight was about 40 kilograms. She has been afebrile since admission. VITAL SIGNS: Blood pressure most recently 146/95 with a respiratory rate of 16, heart rate is 100, temperature 37.2. HEENT: Shows pupils are equal and reactive. Sclerae nonicteric. Oral mucosa is moist. CHEST: Clear bilaterally. HEART: Has a regular rate and rhythm. ABDOMEN: Has active bowel sounds, soft, nontender, no CVA tenderness. EXTREMITIES: She has bilateral hguvf-txx-mvbf amputations. The left one is dressed and I did not take the dressing down to look at this. LABORATORY DATA: Sodium 136, potassium 4.0, chloride 100, bicarbonate 27, BUN 24, creatinine 2.0, glucose 88, calcium 8.1, total protein 5.9, albumin 2.3. Normal liver function tests. Lactate 0.8, hemoglobin 7.1, hematocrit 20.7. White count 9.0, platelets 215,000. Urinalysis, specific gravity 1.015, pH 8.5, 1+ protein, trace blood. ASSESSMENT: 1. Renal failure. She was on dialysis for the better part of the past 2 months. She is currently making a lot of urine. Her creatinine level is down to the lowest it has been at only 2.0. Once again makes me question if she even needs dialysis at all or if she has raised her renal function enough that she no longer needs chronic dialysis. I think the latter is likely the case. We will check her labs over the next couple of days and see what happens with her creatinine trend. If it stays as low, I doubt she will need dialysis. Again, her prior 24-hour urine was an under collection, so we cannot rely on those results. 2. Recent bilateral yvfxc-xmn-qnwn amputations, now with drainage and infection of the stump on the left. ID and Surgery are involved. [facility] [address] [place] [address] CONSULTATION Name: GONZALESFIONA Vernon Room #: 434-P ADM IN M.R.#: [id number] Admission: 02/22/20 Attend Phys: Mick Macdonald Discharge: Date of : 71 Report #: [id number] 3. Diabetes mellitus. 4. Anemia, severe. We will recheck parameters. PLAN: 1. We will check labs over the next couple of days. 2. We will determine her dialysis needs as we get those sequential labs back. 3. Further evaluation of anemia. 4. We will follow along the care of this patient. <ELECTRONICALLY SIGNED> By: Enrique Ferraro MD 02/23/20 0720 1410 [id number] Enrique Ferraro MD /nt
[2020-02-23 07:29] VITALS: BP 151/85
--- NOTE | 2020-02-23 09:00 | NUR ---
cm completed the initial assessment to disucss d/c planning, pt has w/c and slide board. pt stated her sister has a chair in the shower, but pt would like to have shower bench. cm contacted provided plus re this. BR accessories are not covered by insurance, out of pocket cost for shower bench is $65. pt is [facility] seat times t--sat, pt stated her last vist was this past sat, 02/20. [facility], spk to dayna. pt states she lives at home w/sister. sister provides cares. pt's goal is to rtrn home w/sister. cm to cont to follow.
[2020-02-23 16:30] VITALS: BP 157/86
[2020-02-23 19:40] VITALS: BP 147/86
--- NOTE | 2020-02-24 02:24 | NUR ---
PT CARE ASSUMED WITH PT IN BED WATCHING TV.PT IS A/O X4.PT IS ORAL BKA AND ABLE TO TRANSFER SELF TO BEDSIDE COMMODE WITH STANDBY ASSIST.PT CALLS APPROPRIETELY.PTY HAD TEMPERATURE OF 99.3 AND NURSE ADMINISTERED TYLENOL.PT IS ACCUCHECK ACHS WITH SSI.PT IS ON DIALYSIS SUNDAY,SUNDAY AND SUNDAY.STITCHED ON FACE INTACT.WILL CONTINUE TO MONITOR PER POC
[2020-02-24 05:39] LABS: ALBUMIN 2.3 g/dL (3.4-5.0); CREATININE 3.2 mg/dL (0.6-1.0); PHOSPHORUS 4.9 mg/dL (2.5-4.9); POTASSIUM 4.4 mmol/L (3.5-5.1)
[2020-02-24 08:32] VITALS: BP 149/83
--- NOTE | 2020-02-24 12:09 | NUR ---
Patient said their overall morning went fine. Her main focus is getting better and stable and trying to get more sleep at night.
[2020-02-24 12:10] VITALS: BP 149/79
--- NOTE | 2020-02-24 12:18 | NUR ---
I have reviewed the student's documentation.
--- NOTE | 2020-02-24 18:12 | NUR ---
PT IS AOX4, VSS, REPORTS GENERALIZED PAIN. SLIGHT HEADACHE AND PAIN IN LEFT STUMP. PT REPORTS PAIN 4/10. DRESSING CHANGED, NO DRAINAGE NOTED. APPETITE IS GOOD, IV PATENT ON RIGHT HAND. CALL LIGHT IN REACH, PT CALLS APPROPRIATELY. WILL CONTINUE TO MONITOR.
[2020-02-24 21:06] VITALS: BP 154/88
--- NOTE | 2020-02-25 02:15 | NUR ---
PT CARE ASSUMED WITH PT IN BED WATCHING TV.PT IS A/O X4.PT IS ORAL BKA AND TRANSFERS TO BEDSIDE COMMODE WITH X1 ASSIST.PT C/O PAIN AND WAS GIVEN FENTANYL.PT IS ON ZOZYN AND VANCOMYCIN.PT IS ACCUCHCEK ACHS WITH LOW SSI.STITCH ON FACE OK AND DRY TO AIR.WILL CONTINUE TO MONITOR POC
[2020-02-25 07:02] LABS: ALBUMIN 2.3 g/dL (3.4-5.0); CALCIUM 8.7 mg/dL (8.5-10.1); CREATININE 3.6 mg/dL (0.6-1.0); PHOSPHORUS 5.5 mg/dL (2.5-4.9)
[2020-02-25 08:10] VITALS: BP 154/90
[2020-02-25 10:08] LABS: HEP B SURFACE Ab(ANTI-HBS Non Reactive (()); HEPATITIS B SURFACE AG Negative (Negative)
--- NOTE | 2020-02-25 13:34 | NUR ---
Assess due to pt admit with left stump infection. Recent bilateral BKA due to ischemia/gangrene. Developed renal failure and has been on dialysis past few months. Stable weight, great appetite, eating 100%. Appreciated getting menu to cayden own choices. Wts stable around 77-84 lb. Low nutrition risk
[2020-02-25 16:35] VITALS: BP 189/84
--- NOTE | 2020-02-25 16:35 | NUR ---
PT IS AOX4, VSS, RECEIVED DIALYSIS THIS AM. PT IS TOLERATING DIET WELL, REPORTS PAIN IN STUMP AREA. PAIN CONTROLLED WITH PAIN ANALGESIC. FALL PRECAUTIONS IN PLACE. CALL LIGHT IN REACH, PT CALLS APPROPRIATELY. DRESSING ON LEFT STUMP IS CDI. WILL CONTINUE TO MONITOR.
--- NOTE | 2020-02-25 16:47 | NUR ---
Case discussed with the care team. Pt dialyzing again today and continues on iv atbs. Cultures are pending. DC plan at this time is to return home with her sister who helps care for her and resume her outpt dialysis T-TH-Sat at [facility]. Pt has needed dme for mobility. Ortho consult for possible revision of her AKA. Pt was dc'd from acute rehab on 5N to home 01/19/20. Will follow.
[2020-02-25 21:45] VITALS: BP 131/83
[2020-02-26 04:30] VITALS: BP 147/92
[2020-02-26 07:15] VITALS: BP 156/81
--- NOTE | 2020-02-26 13:49 | NUR ---
Assumed care of pt. at 0700. Pt. is calm and cooperative. Pt. complains that stitches are over due to be removed. Stitches were removed. Pt. then began to leak purulent, puss-like draiange. Wound cleaned and dressing applied. Lab results collected. Pt. is positive for MRSA. core drilling supervisor and physician notified. Pt. transferred to . Report called to AIRAM Schafer. Pt., belongings, and chart transferred to .
--- NOTE | 2020-02-26 15:34 | NUR ---
Pt tx to rm 450 for ISO due to MRSA+ labs. 4W cm to follow for dc planning. Pt remains on iv atb. Ortho consult pending for possible revision. The pt has limited benefits with her [place] medicaid for outpt or home infusion services.
[2020-02-26 16:16] VITALS: BP 148/83
[2020-02-26 19:12] VITALS: BP 137/70
[2020-02-27 08:03] VITALS: BP 151/82
[2020-02-27 09:50] VITALS: BP 151/82
[2020-02-27 11:16] VITALS: BP 150/83
--- NOTE | 2020-02-27 11:43 | NUR ---
Received awake on bed. Due medications given as prescribed, able to swallow meds w/o difficulty. On room air. Vital signs stable. A+Ox4. On MS, not on telemetry; no signs and complaints of chest pain, crushing sensation and heaviness. On Heart healthy diet- tolerating well; no nausea, no vomiting and no abdominal pain noted. On blood sugar monitoring, taken and recorded accordingly; with sliding scale insulin ordered. Falls bundle in place. Dialysis M-W-F, a/w dialysis nurse for today's schedule; dialysis access at L chest- No signs of infection and bleeding noted. With bilat BKA; L stump dressing in place, R dressing- no dressing. Assisted in place. To continue monitoring patient.
--- NOTE | 2020-02-27 12:03 | NUR ---
DR. BEAVER WITH [facility]TH[facility] INDICATED THAT DRAIN IS TO BE DC'S TODAY AND THAT ACTIVITY ID TO BE ADVANCED ABLE. HE INIDCATED POSSIBLE DC TO HOME 02/28. PT IS DIALYSIS AT [facility]. ID HAD INDICATED THAT HE MAY WANT PT TO CONTINUE GETTING [facility]ANC WITH DIALYSIS TREATMENTS UPON DC. AWAITING CONFIRMATION. CM TO FOLLOW INDICATED WITH DC PLANNING.
[2020-02-27 16:04] VITALS: BP 148/90
[2020-02-27 19:07] VITALS: BP 154/81
[2020-02-28 08:25] VITALS: BP 173/94
[2020-02-28 09:20] VITALS: BP 142/74
[2020-02-28] MEDS ORDERED: VANCO 500500 MG/100 IV (09:48)
[2020-02-28 10:11] VITALS: BP 173/94
[2020-02-28 11:09] VITALS: BP 173/94
[2020-02-28 11:10] VITALS: BP 173/94
--- NOTE | 2020-02-28 11:42 | NUR ---
PT DISCHARGING TODAY TO HOME PT TO RECEIVE IV ABX TX WHILE HAVING [facility] FAXED DC ORDERS TO [facility] RECEIVED CONFIRMATION.
--- NOTE | 2020-02-28 16:20 | NUR ---
Received awake on bed. Due medications given as prescribed, able to swallow meds w/o difficulty. On room air. Vital signs stable. On MS, not on telemetry; no complains and signs of chest pain, crushing sensation and heaviness. On heart healthy diet- tolerating well; no nausea, no vomiting and no abdominal pain noted. On blood sugar monitoring, taken and recorded accordingly; with sliding scale insulin prescribed. Dialysis M-W-F; dialysis access at L chest- dressing C/D/I. With bilat BKA, R stump- no dressing; L stump with cellulitis- wound photo taken and dressing changed; tolerated dressing change. Complained of pain, due PRN pain meds given as prescribed. With R FA-SL- intact and flushing well. Assisted in ADLs. Pt seen and examined by Dr Macdonald this morning, pt to go home with home health- TODD Laura informed and acknowledged, she said she will be setting up home health as well as outpatient dialysis; asked the patient if someone is available to pick her up or to set up transport- pt said that she wants transport to be set up- CM informed. As per TODD Laura, transport has been set up at [phone], pt informed and updated. Discharge instructions, follow up schedule given and instructed. Prescription for Vancomycin IV(to be given post dialysis) not signed by physician, tried to page Dr Macdonald 2x and tried to page him, no response- Charge nurse informed, to call office supervisor; office supervisor informed and said that we can call pt's pharmacy and call-in prescription- Called [facility] and talked to Staff Riri and informed her re: Vancomycin IV prescription, Riri said she will order it and will be available on Sunday- Pt informed and acknowledged that her IV Vancomycin has been ordered and available on Sunday. IV discontinued. Transport picked up patient; transferrred to wheelchair safely. 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 [facility] staff called and talked to charge nurse, they said that the address given to them- no one was answering, charge nurse talked to them and gave the pt's aunt's address which is [id number], [place], [place]. Pt discharged.
== END 2020-02-28 14:17 | disposition home health service (06) | DRG 564 ==
LOC: ER 23:01 → 4S 02-22 01:11 → EROBS 02-22 01:11 → 4S 02-22 02:16 → 4W 02-26 11:01
PROVIDERS: Emergency Medicine; Hospitalist; Nurse Practitioner Family; ADMIT Hospitalist; ATTEND Hospitalist
PROC: 5A1D70Z Performance of Urinary Filtration, Intermittent, Less than 6 Hours Per Day (ICD-10-PCS; principal; 2020-02-27)
DX: T87.44 Infection of amputation stump, left lower extremity (principal); N18.6 End stage renal disease; L02.416 Cutaneous abscess of left lower limb; L03.116 Cellulitis of left lower limb; N39.0 Urinary tract infection, site not specified; I12.0 Hypertensive chronic kidney disease with stage 5 chronic kidney disease or end stage renal disease; N17.9 Acute kidney failure, unspecified; F17.210 Nicotine dependence, cigarettes, uncomplicated; E11.22 Type 2 diabetes mellitus with diabetic chronic kidney disease; B19.20 Unspecified viral hepatitis C without hepatic coma; F19.10 Other psychoactive substance abuse, uncomplicated; D64.9 Anemia, unspecified; B95.61 Methicillin susceptible Staphylococcus aureus infection as the cause of diseases classified elsewhere; Y83.8 Other surgical procedures as the cause of abnormal reaction of the patient, or of later complication, without mention of misadventure at the time of the procedure; Y92.89 Other specified places as the place of occurrence of the external cause; Z90.49 Acquired absence of other specified parts of digestive tract; Z79.899 Other long term (current) drug therapy; Z89.512 Acquired absence of left leg below knee
CPT/HCPCS: 10040; 10195; 32100